=== PATIENT | male | born 1940 | race Caucasian/White ===

== ENCOUNTER 2019-11-11 12:57 | Outpatient (CLI) | payer MEDICARE, SELFPAY ==
--- NOTE | ~2019-11-11 | US_ITS ---
EXAMINATION: US abdomen complete EXAM DATE: 11/11/2019 13:46 INDICATION: Abdominal pain, symptoms one week. TECHNIQUE: Multiple grayscale and Doppler images of the complete abdomen were obtained (by a technolo gist who performed the scan) and subsequently reviewed. There is no prior study for comparison. FINDINGS: The abdominal aorta is normal in caliber. Visualized portion IVC is patent. The pancreatic head a nd body are normal in appearance. The pancreatic tail is not visualized. The liver has normal echogenicity and contour. There are no focal liver lesions identified. There is no evidence of intrahepatic biliary duct dilation. Portal venous flow was seen in the hepatopedal , normal direction and has normal Doppler waveform. Common bile duct measures 5 mm, which is normal. The gallbladder fossa is unremarkable. Right kidney: There is normal contour and echogenicity. It measures 11.6 x 7.4 x 5.2 centimeters. There are no focal renal lesions identified. There is no hydronephrosis. Left kidney: There is normal contour and echogenicity. It measures 11.2 x 5.8 x 5.3 centimeters. Th ere is a 2 cm cyst. There is no hydronephrosis. The spleen measures 13.2 centimeters and is morphologically normal. IMPRESSION: 1. Unremarkable complete abdominal ultrasound exam. Reviewed, dictated and finalized at location A. E [employer] DIRECTOR
== END 2019-11-11 12:58 | disposition home or self-care (01) ==
PROVIDERS: PCP Internal Medicine; Visit Provider Nurse Practitioner
DX: R10.9 Unspecified abdominal pain (principal)
CPT/HCPCS: 76700

== ENCOUNTER 2020-04-15 10:43 | Outpatient (CLI) | payer MEDICARE, SELFPAY ==
[2020-04-15 11:22] LABS: Alanine Aminotransferase 20 U/L (4-50); Albumin Level 4.4 g/dL (3.5-5.1); Alkaline Phosphatase 75 U/L (38-126); Anion Gap 13.5 mmol/L (7-16); Aspartate Amino Transferase 29 U/L (17-59); Bilirubin,Total 0.6 mg/dL (0.2-1.3); Blood Urea Nitrogen 20 mg/dL (9-20); Calcium 8.9 mg/dL (8.4-10.2); Carbon Dioxide 25 mmol/L (22-30); Chloride 105 mmol/L (98-107); Cholesterol 121 mg/dL (0-200); Estimated Glomerular Filt Rate > 60; Glucose 78 mg/dL (75-110); HDL Direct 36 mg/dL; Potassium 4.5 mmol/L (3.4-5.0); Sodium 139 mmol/L (137-145); Triglycerides 278 mg/dL (<150)
[2020-04-15 11:33] LABS: LDL Cholesterol Direct 57 mg/dL
== END 2020-04-15 10:44 | disposition home or self-care (01) ==
LOC: ANHLAB 10:46
PROVIDERS: PCP Internal Medicine; Visit Provider Internal Medicine
DX: E78.5 Hyperlipidemia, unspecified (principal); I10 Essential (primary) hypertension; Z51.81 Encounter for therapeutic drug level monitoring
CPT/HCPCS: 36415; 80053; 80061

== ENCOUNTER 2020-05-01 08:09 | Inpatient (IN) | payer MEDICARE, SELFPAY ==
[2020-05-01] VITALS (16 sets, daily range): BP systolic 78–121; BP diastolic 42–78; PULSE 90–126; RESP 12–22; TEMP 36.2–37.3; O2SAT 96–100; BMI 27.1
--- NOTE | ~2020-05-01 | US_ITS ---
EXAMINATION: US carotid duplex BI EXAM DATE: 05/02/2020 17:24 INDICATION: Carotid bruit. TECHNIQUE: Grayscale, color and pulsed Doppler images of the cervical carotid arteries were obtained . The degree of vessel stenosis is placed in one of the following categories: normal, <50% stenosis, 50-69% stenosis, >=70% stenosis but less than near-occlusion, near-occlusion, or occlusion. Note that percent stenosis relative to normal distal artery lumen diameter is indirectly measured from velocit y measurements as described by Mervin, et al. Radiology 2003; 229:340-346. There is no prior study fo r comparison. FINDINGS: RIGHT SIDE: Right common carotid artery peak systolic velocity (PSV in cm/s): 71 Right bulb/internal carotid artery peak systolic velocity (PSV in cm/s): 214 Right internal carotid artery end diastolic velocity (EDV in cm/s): 64 Right ICA/CCA peak systolic ratio: 3.0 Right external carotid artery peak systolic velocity (PSV in cm/s): 87 Right vertebral artery antegrade flow: yes Moderate to large amount of right carotid bulb plaque with elevated velocity corresponding to 50-69% stenosis. LEFT SIDE: Left common carotid artery peak systolic velocity (PSV in cm/s): 112 Left bulb/internal carotid artery peak systolic velocity (PSV in cm/s): 274 Left internal carotid artery end diastolic velocity (EDV in cm/s): 91 Left ICA/CCA peak systolic ratio: 78 Left external carotid artery peak systolic velocity (PSV in cm/s): 72 Left vertebral artery antegrade flow: yes Moderate to large amount of left carotid bulb plaque with elevated velocity corresponding to greater than 70% but less than near occlusion. IMPRESSION: 1. 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 2. >=70% stenosis but less than near-occlusion left internal carotid artery. Reviewed, dictated and finalized at location A.
--- NOTE | 2020-05-01 08:16 | ECG_ITS ---
Measurements Intervals [place] Rate: 106 P: 37 FL: 133 QRS: 5 QRSD: 73 T: 90 QT: 325 QTc: 433 Interpretive Statements SINUS TACHYCARDIA BORDERLINE ST-T WAVE ABNORMALITY- ANTEROLAT/HIGH LAT LEADS BASELINE ARTIFACT- I, II, III, AVR, AVL, AVF, V1 ABNORMAL ECG Electronically Signed On 05-01-2020 14:57:30 CDT by Murphy Guerrero D.O.
--- NOTE | 2020-05-01 08:41 | ED.GENADULT ---
HPI - General Adult General Chief complaint: GI Bleed Stated complaint: rectal bleeding Time Seen by Provider: 05/01/20 08:20 Source: patient History of Present Illness HPI narrative: Patient is a 80 y/o male complaining of dark and slightly bloody stool for last 2 days. There is alleviating or exacerbating factor. He states that he had some vomiting 3-4 days ago, but vomiting has stopped. He has no fever, abdominal pain or diarrhea. He feels weak, but denies passing out. He states that he attempted to take his BP with home BP machine earlier today but it would not give a reading. Related Data Home Medications Medication Instructions Recorded Confirmed aspirin 81 mg tablet,delayed 81 mg PO DAILY 10/14/19 05/01/20 release atorvastatin 40 mg tablet 40 mg PO DAILY 10/14/19 05/01/20 Allergies Allergy/AdvReac Type Severity Reaction Status Date / Time No Known Allergies Allergy Unverified 05/01/20 08:17 Review of Systems Constitutional: Constitutional: Denies chills, Denies fever(s), Denies headache(s) and Reports weakness Eyes: Eyes: Denies blurry vision ENT: Denies headache(s) and Denies neck pain Cardiovascular: Cardiovascular: Denies chest pain and Denies dyspnea Respiratory: Respiratory: Denies cough and Denies dyspnea Gastrointestinal: Gastrointestinal: Reports as per HPI, Denies abdominal pain, Reports melena, Reports hematochezia, Denies diarrhea, Reports nausea and Reports vomiting (resolved) Genitourinary: Genitourinary: Denies hematuria and Denies dysuria Musculoskeletal: Musculoskeletal: Denies back pain and Denies neck pain Neurologic: Denies headache(s) and Denies weakness [facility] Past Medical History Medical History Cholecystectomy planned Family History Family History Mother Diabetes mellitus Family history of diabetes mellitus in first degree relative Father Family history of anemia Sibling Patient's sister is in good health Patient's brother is in good health Social History Social History Smoking status: Former smoker Smoking end date: 09/23/77 Alcohol intake: never Substance use: never Gender identity (if verbalized by the patient): Male Spiritual care concerns: No Exam Const: General: no acute distress and well developed Orientation/consciousness: oriented to person, oriented to place, oriented to time and patient oriented x3 HENMT: Head: normocephalic Ears: external ears normal General nose exam: Normal external nose present Eyes: General: appearance normal, both eyes and all related structures Conjunctivae: conjunctivae normal Neck: Neck: normal visual inspection and full ROM Chest: Chest palpation & inspection: normal inspection of the chest and no tenderness Resp: Effort & Inspection: normal respiratory effort Auscultation: clear to auscultation bilaterally Cardio: Rate: tachycardic Rhythm: regular rhythm GI: GI Palp: No abdominal tenderness and Yes Soft to palpation Skin: General skin exam: normal color and turgor normal Neuro: General: oriented to person, oriented to place, oriented to time and patient oriented x3 Cognition (Neuro): normal cognition Extrem: General: normal to inspection, full ROM and no pedal edema Psych: Appearance: grossly normal Mental Status: mental status grossly normal Affect: normal affect Course Consultations Consultation #1: Discussed with Dr. Pendleton, who agrees to admit. Date: 05/01/20 Time: 11:19 Consultation #2: Discussed with Dr. Vidal, who agrees to consult. Date: 05/01/20 Time: 11:38 Vital Signs Vital signs: Vital Signs Temperature 36.2 C L 05/01/20 08:12 Pulse Rate 100 05/01/20 08:12 Respiratory Rate 21 H 05/01/20 08:12 Blood Pressure 103/50 L 05/01/20 08:12 Pulse Oximetry 100 05/01/20 08:12 Temperature 36.9 C 05/01/20 1
[2020-05-01] MEDS: SODIUM CHLORIDE 0.9% IV 1,000 ML 999 ML IV CONT ×2 (08:43→11:13)
[2020-05-01 08:50] LABS: Basophils Percent Auto 0.2 % (0.2-1.2); Eosinophils Percent Auto 0.2 % (0-4.4); Hematocrit 27.5 % (42.0-52.0); Immature Granulocyte Absolute 0.08 K/mm3 (0.00-0.031); Immature Granulocyte Percent A 0.6 % (0-0.5); Lymphocytes Absolute Auto 2.26 K/mm3 (0.9-3.2); Lymphocytes Percent Auto 17.5 % (18.3-44.2); Mean Corpuscular HGB Conc 32.7 g/dl (32-36); Mean Corpuscular Hemoglobin 30.4 pg (26-34); Mean Corpuscular Volume 92.9 fl (80-100); Mean Platelet Volume 11.5 fl (7.4-10.4); Monocytes Absolute Auto 0.6 K/mm3 (0.1-0.6); Monocytes Percent Auto 4.3 % (2.6-8.5); Neutrophils Percent Auto 77.2 % (45.5-73.1); Platelet Count Result 232 k/mm3 (150-375); Red Blood Count 2.96 M/mm3 (4.6-6.20); Red Cell Distribution Width 13.2 % (11.5-14.5); White Blood Count 12.9 K/mm3 (4.5-10.0)
[2020-05-01 08:56] LABS: Alanine Aminotransferase 14 U/L (4-50); Albumin Level 3.6 g/dL (3.5-5.1); Alkaline Phosphatase 49 U/L (38-126); Anion Gap 13 mmol/L (8-16); Aspartate Amino Transferase 20 U/L (17-59); Bilirubin,Total 0.4 mg/dL (0.2-1.3); Blood Urea Nitrogen 30 mg/dL (9-20); Calcium 7.9 mg/dL (8.4-10.2); Carbon Dioxide 18 mmol/L (22-30); Chloride 105 mmol/L (98-107); Estimated CRCL calculation 43 ml/min; Estimated Glomerular Filt Rate > 60; Glucose 179 mg/dL (75-110); Potassium 4.2 mmol/L (3.4-5.0); Sodium 136 mmol/L (137-145)
[2020-05-01 09:02] LABS: INR 1.2; Prothrombin Time 14.6 Seconds (11.1-14.7)
[2020-05-01 10:01] LABS: Hematocrit 22.6 % (42.0-52.0); Hemoglobin 7.3 g/dL (14.0-18.0)
[2020-05-01] MEDS: PANTOPRAZOLE SODIUM IV 40 MG VIAL IV PUSH ×2 (12:01→20:59)
--- NOTE | 2020-05-01 12:48 | ADMGEN ---
This patient, Osmani Ma Jr., was admitted to IMU Room 212-01. Patient/family oriented to hospital policies and general routines including ID bracelet, bed and alarms, visiting hours, pain management, procedures, bathroom and other care routines, personal items, smoking policy, room service/diet, and visiting hours. Valuables list has been completed. Information on how to activate the Rapid Response Team has been discussed. Patient/Family are encouraged to report perceived risks to care and to ask questions if they do not understand what they are told or what they should do.
[2020-05-01] MEDS: SODIUM CHLORIDE 0.9% IV 250 ML 30 ML IV CONT (13:30)
[2020-05-01] MEDS: TUBING, BLOOD PLUM PUMP TUBING 1 EACH XX (14:25)
[2020-05-01] MEDS: DEXTROSE 5%/0.45% SOD CHL 1,000 ML 100 ML IV CONT (15:41)
--- NOTE | 2020-05-01 15:56 | PM.IMHP ---
H&P: HPI History of Present Illness Date/Time: 05/01/20 15:56 Chief complaint: acute blood loss anemia Narrative: Osmani Ma Jr. is a 80yo male with hx of CAD on ASA who present to the ER with complaint of mostly dark and slightly bloody stool for last 2 days. Patient has been having frequent small bowel movements. Stool has been mostly dark black in color but there was 1 episode where stool was reddish. No abdominal pain. No fever or chills. No chest pain. No odynophagia or dysphagia. No cough or SOB. No dysuria or hematuria. He denies GERD symptoms but did have bloating about 6 months ago treated with Gas-X with benefit. He is having recurrent bloating that began about a month ago. He does take Tums daily for the bloating. He did have episode of emesis x5 a day or so prior to the having black stools. No blood in the emesis. No sick contacts. Could have been related to spoiled foods. Nause and vomiting resolved. He takes Aleve 2-3x/month for pain. He denies any burning in the chest or acid taste the mouth. No weight loss. This morning patient had a black stool. When he stood, he felt lightheaded and weak. Symptoms past but because of the symptoms he presented to the emergency room for evaluation. In the emergency room, patient was hemodynamically stable. Hemoglobin was 9.0. While in the emergency room patient's systolic blood pressure dropped to 78. His repeat hemoglobin was 7.3. He had received IV fluids. He was started on Protonix. Transfusion ordered. GI consulted. He was admitted to the IMU for further management. He does have a murmur but states he had an Echo 1-2 months ago. Review of Systems Review of Systems: All systems reviewed & are unremarkable except as noted in HPI and below [facility] Past Medical History Medical History CAD (coronary artery disease) Hx of prox and Mid LAD stent placement January 2018 Hearing loss Sensorineural Hyperlipidemia, unspecified Surgical History Surgical History Hx of cataract surgery Hx of cholecystectomy Family History Family History Mother Diabetes mellitus Family history of diabetes mellitus in first degree relative Father Family history of anemia Sibling Patient's sister is in good health Patient's brother is in good health Social History Social History Social History: Lives with and does have a dog. Quit tobacco at 40yo after smoking 2.5ppd for 30 yrs (started at age 10yo). No alcohol or drug use. Full code. He nominates his to be the individual who would make medical decisions for him if he is unable. Smoking status: Former smoker Smoking end date: 09/23/77 Alcohol intake: never Substance use: never Gender identity (if verbalized by the patient): Male Spiritual care concerns: No Meds Home Medications and Allergies Home Medications Medication Instructions Recorded Confirmed Type aspirin 81 mg tablet,delayed 81 mg PO DAILY 10/14/19 05/01/20 History release atorvastatin 40 mg tablet 40 mg PO DAILY 10/14/19 05/01/20 History Allergies Allergy/AdvReac Type Severity Reaction Status Date / Time No Known Allergies Allergy Unverified 05/01/20 08:17 Vital Signs Vital Signs - 24 hr 05/01/20 08:12 05/01/20 08:21 05/01/20 08:43 Temperature 97.1 F L Pulse Rate 100 108 H 126 H Respiratory Rate 21 H 16 Blood Pressure 103/50 L 121/68 78/46 L Pulse Oximetry 100 97 05/01/20 09:56 05/01/20 11:13 05/01/20 12:23 Temperature Pulse Rate 97 98 99 Respiratory Rate 17 18 20 Blood Pressure 101/51 L 112/60 121/46 L Pulse Oximetry 100 99 96 05/01/20 13:03 05/01/20 13:27 05/01/20 13:43 Temperature 98.4 F 98.4 F 98 F Pulse Rate 103 H 103 H 101 H Respiratory Rate 14 14 12 Blood Pressure 9
[2020-05-01 15:59] LABS: IFOB Positive Control Positive; Immunochemical Fecal Occult Bl Positive (N)
[2020-05-01 19:07] LABS: Hematocrit 21.9 % (42.0-52.0); Hemoglobin 7.3 g/dL (14.0-18.0)
[2020-05-02] VITALS (32 sets, daily range): BP systolic 84–128; BP diastolic 36–54; PULSE 62–101; RESP 16–24; TEMP 35.7–36.6; O2SAT 89–100
[2020-05-02 00:47] LABS: Hemoglobin 6.2 g/dL (14.0-18.0)
[2020-05-02 00:48] LABS: Hematocrit 18.7 % (42.0-52.0)
[2020-05-02] MEDS: DEXTROSE 5%/0.45% SOD CHL 1,000 ML 100 ML IV CONT (01:05)
[2020-05-02] MEDS: SODIUM CHLORIDE 0.9% IV 100 ML 20 ML (05:34)
[2020-05-02] MEDS: PANTOPRAZOLE SODIUM IV 40 MG VIAL IV PUSH ×2 (08:24→20:51)
[2020-05-02] MEDS: SODIUM CHLORIDE 0.9% IV 250 ML 30 ML IV CONT (08:26)
--- NOTE | 2020-05-02 09:15 | WPDGICN ---
Assessment and Plan Assessment and plan (1) GI bleed: Qualifiers: GI bleed type/associated pathology: unspecified gastrointestinal hemorrhage type Qualified Code(s): K92.2 - Gastrointestinal hemorrhage, unspecified Code(s): K92.2 - Gastrointestinal hemorrhage, unspecified Status: Acute Assessment and Plan: Patient with GI bleeding. Black melenic stools coffee-ground emesis all suggest upper GI bleeding. Plan is to start proton pump inhibitor. Transfuse to stable hemoglobin an EGD will be performed today. (2) Acute blood loss anemia: Code(s): D62 - Acute posthemorrhagic anemia Status: Acute Assessment and Plan: Transfuse to a stable hemoglobin. Continue monitor hemoglobin closely while hospitalized. (3) CAD (coronary artery disease): Code(s): I25.10 - Atherosclerotic heart disease of [place] coronary artery without angina pectoris Status: Acute GI Consult Note Consult date/time: 05/02/20 09:15 HPI: Osmani Ma Jr. is a 80 year old male Seen in evaluation at the request of the hospitalist service. Patient states he was in usual state of health however since Saturday over last 2-3 days is had bloody and black stools. He states he initially vomited coffee-ground dark material on Saturday period and subsequently had blood in his stools that is mostly dark but some red tinge. He has had rather vague abdominal discomfort. He denies any prior history of ulcer disease. He became somewhat lightheaded yesterday prompting him to present to the emergency room for evaluation and admission. He has received transfusion since that time. Review of Systems Review of Systems: All systems reviewed & are unremarkable except as noted in HPI and below [facility] Past Medical History Medical History CAD (coronary artery disease) Hx of prox and Mid LAD stent placement January 2018 Hearing loss Sensorineural Hyperlipidemia, unspecified Surgical History Surgical History Hx of cataract surgery Hx of cholecystectomy Family History Family History Mother Diabetes mellitus Family history of diabetes mellitus in first degree relative Father Family history of anemia Sibling Patient's sister is in good health Patient's brother is in good health Social History Social History Social History: Lives with and does have a dog. Quit tobacco at 40yo after smoking 2.5ppd for 30 yrs (started at age 10yo). No alcohol or drug use. Full code. He nominates his to be the individual who would make medical decisions for him if he is unable. Smoking status: Former smoker Smoking end date: 09/23/77 Alcohol intake: never Substance use: never Gender identity (if verbalized by the patient): Male Spiritual care concerns: No Meds Home Medications and Allergies Home Medications Medication Instructions Recorded Confirmed Type aspirin 81 mg tablet,delayed 81 mg PO DAILY 10/14/19 05/01/20 History release atorvastatin 40 mg tablet 40 mg PO DAILY 10/14/19 05/01/20 History Allergies Allergy/AdvReac Type Severity Reaction Status Date / Time No Known Allergies Allergy Unverified 05/01/20 08:17 Vital Signs Vital Signs - 24 hr 05/01/20 09:56 05/01/20 11:13 05/01/20 12:23 Temperature Pulse Rate 97 98 99 Respiratory Rate 17 18 20 Blood Pressure 101/51 L 112/60 121/46 L Pulse Oximetry 100 99 96 05/01/20 13:03 05/01/20 13:27 05/01/20 13:43 Temperature 98.4 F 98.4 F 98 F Pulse Rate 103 H 103 H 101 H Respiratory Rate 14 14 12 Blood Pressure 93/47 L 93/47 L 112/44 L Pulse Oximetry 100 100 100 05/01/20 14:00 05/01/20 14:43 05/01/20 16:00 Temperature 98 F 98.2 F Pulse Rate 98 99 90 Respiratory Rate 12 18 Blood Pressure 111/49 L
[2020-05-02 11:04] LABS: Hematocrit 23.2 % (42.0-52.0); Hemoglobin 7.8 g/dL (14.0-18.0); Mean Corpuscular HGB Conc 33.6 g/dl (32-36); Mean Corpuscular Hemoglobin 28.9 pg (26-34); Mean Corpuscular Volume 85.9 fl (80-100); Mean Platelet Volume 10.8 fl (7.4-10.4); Platelet Count Result 149 k/mm3 (150-375); White Blood Count 8.4 K/mm3 (4.5-10.0)
[2020-05-02 11:18] LABS: Anion Gap 3 mmol/L (8-16); Blood Urea Nitrogen 22 mg/dL (9-20); Calcium 6.8 mg/dL (8.4-10.2); Carbon Dioxide 23 mmol/L (22-30); Chloride 108 mmol/L (98-107); Estimated CRCL calculation 52 ml/min; Estimated Glomerular Filt Rate > 60; Glucose 100 mg/dL (75-110); Potassium 3.5 mmol/L (3.4-5.0); Sodium 134 mmol/L (137-145)
[2020-05-02] MEDS: LACTATED RINGERS 1,000 ML 150 ML IV CONT (12:34)
--- NOTE | 2020-05-02 12:58 | WPDANESEPPF ---
Anes - Initial Pre Proc Eval Procedure: Operation Date: 05/02/20 13:00 Proposed Procedures p Esophagogastroduodenoscopy - Willard Vidal MD Date/Time: 05/02/20 12:58 Surgeon: Roney Pendleton MD Pre Op Diagnosis: acute blood loss anemia Patient Data Age: 80 Gender: M Height: 5 ft 7 in Weight: 78.7 kg Last Vital Signs Temp 97.9 F 05/02/20 12:36 Pulse 81 05/02/20 12:36 Resp 18 05/02/20 12:36 BP 114/53 L 05/02/20 12:36 Pulse Ox 96 05/02/20 12:36 Allergies Allergy/AdvReac Type Severity Reaction Status Date / Time No Known Allergies Allergy Unverified 05/01/20 08:17 Home Medications Medication Instructions Recorded Confirmed Type aspirin 81 mg tablet,delayed 81 mg PO DAILY 10/14/19 05/01/20 History release atorvastatin 40 mg tablet 40 mg PO DAILY 10/14/19 05/01/20 History Laboratory Tests 05/01/20 05/01/20 05/01/20 08:31 15:24 18:31 WBC RBC Hgb 7.3 g/dL L g/dL (14.0-18.0) Hct 21.9 % L % (42.0-52.0) MCV MCH MCHC RDW Plt Count MPV Sodium Potassium Chloride Carbon Dioxide Anion Gap BUN Creatinine Estim Creat Clear Calc Estimated GFR Glucose Calcium Stl Occult Blood (IFOB) Positive H (N) Blood Type O Positive Antibody Screen Negative Crossmatch See Detail 05/02/20 05/02/20 05/02/20 00:35 10:10 10:10 WBC 8.4 K/mm3 K/mm3 (4.5-10.0) RBC 2.70 M/mm3 L M/mm3 (4.6-6.20) Hgb 6.2 g/dL L* g/dL 7.8 g/dL L g/dL (14.0-18.0) (14.0-18.0) Hct 18.7 % L* % 23.2 % L % (42.0-52.0) (42.0-52.0) MCV 85.9 fl D fl (80-100) MCH 28.9 pg pg (26-34) MCHC 33.6 g/dl g/dl (32-36) RDW 17.0 % H % (11.5-14.5) Plt Count 149 k/mm3 L k/mm3 (150-375) MPV 10.8 fl H fl (7.4-10.4) Sodium 134 mmol/L L mmol/L (137-145) Potassium 3.5 mmol/L mmol/L (3.4-5.0) Chloride 108 mmol/L H mmol/L (98-107) Carbon Dioxide 23 mmol/L mmol/L (22-30) Anion Gap 3 mmol/L L mmol/L (8-16) BUN 22 mg/dL H mg/dL (9-20) Creatinine 0.90 mg/dL mg/dL (0.7-1.3) Estim Creat Clear Calc 52 ml/min ml/min Estimated GFR > 60 (59 - ) Glucose 100 mg/dL mg/dL (75-110) Calcium 6.8 mg/dL L mg/dL (8.4-10.2) Stl Occult Blood (IFOB) Blood Type Antibody Screen Crossmatch Patient hx anesthesia problems: none Family hx anesthesia problems: none [facility] Past Medical History Medical History CAD (coronary artery disease) Hx of prox and Mid LAD stent placement January 2018 Hearing loss Sensorineural Hyperlipidemia, unspecified Surgical History Surgical History Hx of cataract surgery Hx of cholecystectomy Family History Family History Mother Diabetes mellitus Family history of diabetes mellitus in first degree relative Father Family history of anemia Sibling Patient's sister is in good health Patient's brother is in good health Social History Social History Social History: Lives with and does have a dog. Quit tobacco at 40yo after smoking 2.5ppd for 30 yrs (started at age 10yo). No alcohol or drug use. Full code. He nominates his to be the individual who would make medical decisions for him if he is unable. Smoking status: Former smoker Smoking end date: 09/23/77 Alcohol intake: never Substance use: never Ge
[2020-05-02] MEDS: BENZOCAINE (*SP) 60 ML SPRAY CAN (HURRICAINE) 1 SPRAY MUCOUS MEM (14:01)
--- NOTE | 2020-05-02 14:29 | PM.IMPN ---
Progress Note: A&P Assessment and Plan (1) Hypotension: Code(s): I95.9 - Hypotension, unspecified Status: Acute Assessment and Plan: Patient had transient hypotension related to the acute blood loss anemia. Blood pressure became more stable. BP currently at 90/40 so will continue IV fluids for now. Continue to monitor closely. Transfusion as necessary. Keep in IMU for now. (2) Acute blood loss anemia: Code(s): D62 - Acute posthemorrhagic anemia Status: Acute Assessment and Plan: Hemoglobin was 9 on admission and dropped to 7.3. He was transfusion of 1 unit packed red blood cells. Hgb this morning at 6.2 so repeat transfusion ordered. Repeat Hgb 7.8. Continue serial HH (3) GI bleed: Qualifiers: GI bleed type/associated pathology: unspecified gastrointestinal hemorrhage type Qualified Code(s): K92.2 - Gastrointestinal hemorrhage, unspecified Code(s): K92.2 - Gastrointestinal hemorrhage, unspecified Status: Acute Assessment and Plan: Patient likely with an upper GI bleed to explain the acute blood loss and hypotension. Stool is guaiac positive. He does take NSAIDs in the form of ASA and occasional Aleve. EGD showing reflux esophagitis that bleeds on contact. GI following and appreciate their input. BP soft still possibly from anaesthesia. Will contineu IV fluids. (4) CAD (coronary artery disease): Code(s): I25.10 - Atherosclerotic heart disease of [place] coronary artery without angina pectoris Status: Acute Assessment and Plan: Patient had abnormal stress test and ultimately underwent catheterization in January of 2018. This showed left anterior descending artery stenosis requiring drug-eluting stent placement. Patient has been doing well since that time. No chest pain with exertion. Will continue Lipitor but hold aspirin. Carotid US showing 50-69% stenosis right and >=70% stenosis but less than near-occlusion left internal carotid artery. ASA on hold. Continue Lipitor. Will need confirmatory testing to assess severity which can be deferred to outpatient. (5) Hyperlipidemia, unspecified: Code(s): E78.5 - Hyperlipidemia, unspecified Status: Acute Assessment and Plan: LFTs within normal limits. Cholesterol panel last month showing LDL 57 and HDL 36. Continue atorvastatin. (6) Carotid bruit: Code(s): R09.89 - Other specified symptoms and signs involving the circulatory and respiratory systems Status: Acute Assessment and Plan: Left carotid bruit appreciated. Carotid ultrasound pending. (7) DVT prophylaxis: Code(s): Z29.9 - Encounter for prophylactic measures, unspecified Status: Acute Assessment and Plan: SCDs in light of GI bleed. Subjective Date/time seen: 05/02/20 14:29 Interval history: 80yo male here for GI bleed. Patient was having dark red stools overnight. He slept okay. He denies any chest pain or shortness of breath. He denies any abdominal pain. Exam Narrative: Exam Narrative: AF 90/40 83 24 100% ra Gen - NARD Chest - lungs are clear to auscultation bilaterally. No wheezes or crackles. CV - heart was regular rate and rhythm. S1-S2. Tele showing some sinus tachycardia at times Abd - abdomen was soft. Nontender. Nondistended. Positive bowel sounds. Ext - no pedal edema. Neuro - nonfocal Psych - normal mood and affect Skin - warm and dry. Objective Data Vital Signs Vital Signs: Vital Signs - 24 hr 05/01/20 14:43 05/01/20 16:00 05/01/20 17:46 Temperature 98 F 98.2 F Pulse Rate 99 90 110 H Respiratory Rate 12 18 Blood Pressure 111/49 L 107/47 L Pulse Oximetry 99 100 05/01/20 19:04 05/01/20 20:00 05/01/20 22:00 Temperature 99.2 F Pulse Rate 101 H 103 H 99 Respiratory Rate 18 22 H Blood Pressure 115/42 L Pulse Oximetry 98 100 05/02/20 00:00 05/02/20 02:00 05/02/20 03:37 Temper
[2020-05-02 15:29] LABS: Hematocrit 23.1 % (42.0-52.0); Hemoglobin 7.7 g/dL (14.0-18.0)
[2020-05-02] MEDS: LACTATED RINGERS 1,000 ML 70 ML IV CONT (16:56)
[2020-05-02 21:54] LABS: Hematocrit 19.1 % (42.0-52.0); Hemoglobin 6.3 g/dL (14.0-18.0)
[2020-05-03] VITALS (17 sets, daily range): BP systolic 87–123; BP diastolic 41–55; PULSE 78–98; RESP 18–20; TEMP 36–37.1; O2SAT 95–100
[2020-05-03] MEDS: SODIUM CHLORIDE 0.9% IV 250 ML 30 ML IV CONT (00:52)
--- NOTE | 2020-05-03 02:21 | PC.NURSE ---
05/03/20: 0221: DR PUGA IS AWARE OF PATIENTS LOW BLOOD PRESSURE AND THAT THE PATIENT IS STILL HAVING BLOODY STOOLS.
[2020-05-03 04:32] LABS: Hematocrit 26.1 % (42.0-52.0); Hemoglobin 8.8 g/dL (14.0-18.0); Mean Corpuscular HGB Conc 33.7 g/dl (32-36); Mean Corpuscular Hemoglobin 29.9 pg (26-34); Mean Corpuscular Volume 88.8 fl (80-100); Mean Platelet Volume 10.4 fl (7.4-10.4); Platelet Count Result 139 k/mm3 (150-375); Red Blood Count 2.94 M/mm3 (4.6-6.20); White Blood Count 7.8 K/mm3 (4.5-10.0)
[2020-05-03 04:50] LABS: Anion Gap 4 mmol/L (8-16); Blood Urea Nitrogen 20 mg/dL (9-20); Calcium 7.2 mg/dL (8.4-10.2); Carbon Dioxide 24 mmol/L (22-30); Chloride 108 mmol/L (98-107); Estimated CRCL calculation 47 ml/min; Estimated Glomerular Filt Rate > 60; Glucose 89 mg/dL (75-110); Potassium 3.9 mmol/L (3.4-5.0); Sodium 136 mmol/L (137-145)
--- NOTE | 2020-05-03 07:50 | WPDANESPN ---
Anes - Prog Note Post-Op Date/Time: 05/03/20 07:50 Cardiovascular status: normal Respiratory status: normal Airway patency: baseline Mental status: baseline Post-Op hydration status: normal Vital Signs: Last Vital Signs Temp 36.3 C L 05/03/20 03:55 Pulse 88 05/03/20 06:00 Resp 20 05/03/20 04:00 BP 115/47 L 05/03/20 03:55 Pulse Ox 95 05/03/20 04:00 I/O: Intake & Output 05/02/20 05/02/20 05/03/20 15:59 23:59 07:59 Intake Total 700 240 700 Balance 700 240 700 Laboratory Tests 05/03/20 04:18 05/03/20 04:18 05/01/20 05/02/20 05/02/20 08:31 10:10 10:10 WBC 8.4 RBC 2.70 L Hgb 7.8 L Hct 23.2 L MCV 85.9 D MCH 28.9 MCHC 33.6 RDW 17.0 H Plt Count 149 L MPV 10.8 H Sodium 134 L Potassium 3.5 Chloride 108 H Carbon Dioxide 23 Anion Gap 3 L BUN 22 H Creatinine 0.90 Estim Creat Clear Calc 52 Estimated GFR > 60 Glucose 100 Calcium 6.8 L Blood Type O Positive Antibody Screen Negative Crossmatch See Detail 05/02/20 05/02/20 05/03/20 15:19 21:30 04:18 WBC 7.8 RBC 2.94 L Hgb 7.7 L 6.3 L* 8.8 L Hct 23.1 L 19.1 L* 26.1 L MCV 88.8 MCH 29.9 MCHC 33.7 RDW 16.0 H Plt Count 139 L MPV 10.4 Sodium Potassium Chloride Carbon Dioxide Anion Gap BUN Creatinine Estim Creat Clear Calc Estimated GFR Glucose Calcium Blood Type Antibody Screen Crossmatch 05/03/20 04:18 WBC RBC Hgb Hct MCV MCH MCHC RDW Plt Count MPV Sodium 136 L Potassium 3.9 Chloride 108 H Carbon Dioxide 24 Anion Gap 4 L BUN 20 Creatinine 1.00 Estim Creat Clear Calc 47 Estimated GFR > 60 Glucose 89 Calcium 7.2 L Blood Type Antibody Screen Crossmatch Post-procedural complaints: none Patient Feedback: Patient satisfied with anesthetic care.
[2020-05-03] MEDS: ATORVASTATIN 40 MG TABLET PO (09:42)
[2020-05-03] MEDS: LACTATED RINGERS 1,000 ML 70 ML IV CONT (09:43)
[2020-05-03] MEDS: PANTOPRAZOLE SODIUM IV 40 MG VIAL IV PUSH ×2 (09:44→22:14)
--- NOTE | 2020-05-03 12:21 | WPDGIPROGNO ---
Progress Note: A&P Additional Plan Patient alert and comfortable today. Denies abdominal pain. He continued to pass some reddish stools yesterday. Received transfusion. Denies any ongoing abdominal pain. No additional bleeding noted this morning. Physical exam reveals patient be alert. lungs are clear. Heart without murmur. Abdomen bowel sounds present soft nontender with no organomegaly. Labs reveal hemoglobin 8.8 after transfusion yesterday. Impression 1. GI bleeding. Cannot exclude lower GI source contributing to blood loss. Plan to proceed with colonoscopy tomorrow after preparation today. 2. Erosive esophagitis. This was identified by endoscopy yesterday. Likely contributes to GI bleeding. Will maintain patient on proton pump inhibitor. Subjective Date/time seen: 05/03/20 12:21 Objective Data Vital Signs Vital Signs: Vital Signs - 24 hr 05/02/20 12:36 05/02/20 14:00 05/02/20 14:11 Temperature 97.9 F Pulse Rate 81 90 83 Respiratory Rate 18 24 H Blood Pressure 114/53 L 90/40 L Pulse Oximetry 96 100 05/02/20 14:21 05/02/20 14:31 05/02/20 14:44 Temperature Pulse Rate 83 87 90 Respiratory Rate 21 H 19 19 Blood Pressure 84/38 L 97/36 L 102/51 L Pulse Oximetry 100 100 100 05/02/20 16:00 05/02/20 16:47 05/02/20 17:57 Temperature 96.8 F L Pulse Rate 86 95 96 Respiratory Rate 18 Blood Pressure 117/51 L Pulse Oximetry 100 05/02/20 19:58 05/02/20 20:00 05/02/20 22:00 Temperature 97.9 F Pulse Rate 100 100 101 H Respiratory Rate 18 18 Blood Pressure 104/45 L Pulse Oximetry 99 99 05/02/20 22:55 05/02/20 23:10 05/02/20 23:12 Temperature 96.4 F L 96.6 F L 96.6 F L Pulse Rate 90 92 92 Respiratory Rate 20 16 16 Blood Pressure 105/40 L 99/47 L 99/47 L Pulse Oximetry 97 98 98 05/03/20 00:00 05/03/20 00:12 05/03/20 01:12 Temperature 98.0 F 97.5 F L Pulse Rate 78 78 87 Respiratory Rate 20 20 20 Blood Pressure 96/46 L 109/55 L Pulse Oximetry 97 97 97 05/03/20 01:39 05/03/20 01:45 05/03/20 02:00 Temperature 97.3 F L 96.9 F L 96.8 F L Pulse Rate 94 87 95 Respiratory Rate 20 20 20 Blood Pressure 109/55 L 88/48 L 87/44 L Pulse Oximetry 97 97 97 05/03/20 03:00 05/03/20 03:55 05/03/20 04:00 Temperature 97.9 F 97.4 F L Pulse Rate 91 86 86 Respiratory Rate 20 20 20 Blood Pressure 123/50 L 115/47 L Pulse Oximetry 97 95 95 05/03/20 06:00 05/03/20 08:37 Temperature 97.8 F Pulse Rate 88 94 Respiratory Rate 20 Blood Pressure 117/50 L Pulse Oximetry 100 Intake/Output Intake/Output: Intake & Output 04/30/20 05/01/20 05/02/20 05/03/20 23:59 23:59 23:59 23:59 Intake Total 8425 2530 1940 Balance 2685 2530 1940 Meds/Results Medications: Active Medications Generic Name Dose Route Start Last Admin Trade Name Freq PRN Reason Stop Dose Admin Atorvastatin Calcium 40 mg 05/02/20 09:00 05/03/20 09:42 Lipitor PO 40 mg DAILY DUSTY Administration Lactated Ringer's 1,000 mls @ 70 mls/hr 05/02/20 16:30 05/03/20 09:43 Lr - Lactated Ringers Iv IV CONT 70 mls/hr .[id number] DUSTY Administration Lidocaine HCl 0.3 ml 05/02/20 09:53 Xylocaine 2% Local Inj INTRADERM ONCE PRN to numb area Pantoprazole Sodium 40 mg 05/01/20 21:00 05/03/20 09:44 Protonix Iv IV PUSH 40 mg Q12HR DUSTY Administration Radiology Results: ITS Impressions Carotid Doppler Study 05/02/20 18:17 IMPRESSION: 1. 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 2. >=70% stenosis but less than near-occlusion left internal carotid artery. Labs Labs: Laboratory Results - last 24 hr 05/01/20 05/02/20 05/02/20 08:31 15:19 21:30 WBC RBC Hgb 7.7 L 6.3 L* Hct 23.1 L 19.1 L* MCV MCH MCHC RDW Plt Count MPV Sodium Potassium Chloride Carbon Dioxide Anion Gap BUN Creatinine Estim Creat Clear Calc Estimated GFR Glucose Calcium Blood Type O
--- NOTE | 2020-05-03 12:33 | PC.NURSE ---
This patient, Osmani Ma Jr., was transferred to [[id number]] on 05/03/20 at 1233. Personal belongings sent with patient. Belongings list checked and signed with receiving [ ]. Report given to [JAMES WHARTON]. Appropriate documentation sent with patient.
[2020-05-03] MEDS: PEG (High)/E-LYTE SOLN 4,000 ML BTL 4000 ML PO (14:03)
--- NOTE | 2020-05-03 15:59 | PM.IMPN ---
Progress Note: A&P Assessment and Plan (1) Hypotension: Code(s): I95.9 - Hypotension, unspecified Status: Acute Assessment and Plan: Patient had transient hypotension related to the acute blood loss anemia. Blood pressure became more stable. Continue to monitor closely. Transfusion as necessary (2) Acute blood loss anemia: Code(s): D62 - Acute posthemorrhagic anemia Status: Acute Assessment and Plan: Hemoglobin was 9 on admission and dropped to 7.3. He was transfusion of 1 unit packed red blood cells. Hgb 8/10 at 6.2 so repeat transfusion ordered. Repeat Hgb 7.8. and 8.8 this am (3) GI bleed: Qualifiers: GI bleed type/associated pathology: unspecified gastrointestinal hemorrhage type Qualified Code(s): K92.2 - Gastrointestinal hemorrhage, unspecified Code(s): K92.2 - Gastrointestinal hemorrhage, unspecified Status: Acute Assessment and Plan: Patient likely with an upper GI bleed to explain the acute blood loss and hypotension. Stool is guaiac positive. He does take NSAIDs in the form of ASA and occasional Aleve. EGD showing reflux esophagitis that bleeds on contact.. . Will contineu IV fluids. colon 05/04 (4) CAD (coronary artery disease): Code(s): I25.10 - Atherosclerotic heart disease of redding coronary artery without angina pectoris Status: Acute Assessment and Plan: Patient had abnormal stress test and ultimately underwent catheterization in January of 2018. This showed left anterior descending artery stenosis requiring drug-eluting stent placement. Patient has been doing well since that time. No chest pain with exertion. Will continue Lipitor but hold aspirin. Carotid US showing 50-69% stenosis right and >=70% stenosis but less than near-occlusion left internal carotid artery. ASA on hold. Continue Lipitor. CTA of neck (5) Hyperlipidemia, unspecified: Code(s): E78.5 - Hyperlipidemia, unspecified Status: Acute Assessment and Plan: LFTs within normal limits. Cholesterol panel last month showing LDL 57 and HDL 36. Continue atorvastatin. (6) Carotid bruit: Code(s): R09.89 - Other specified symptoms and signs involving the circulatory and respiratory systems Status: Acute Assessment and Plan: Left carotid bruit appreciated. Carotid ultrasound as above and CTA ordered (7) DVT prophylaxis: Code(s): Z29.9 - Encounter for prophylactic measures, unspecified Status: Acute Assessment and Plan: SCDs in light of GI bleed. Subjective Date/time seen: 05/03/20 15:59 Interval history: Date of visit 05/03. 80yo male here for GI bleed. Patient was having dark red stools overnight. He slept okay. He denies any chest pain or shortness of breath. He denies any abdominal pain. Exam Narrative: Exam Narrative: AF 118/80 80 24 100% ra Gen - NARD Chest - lungs are clear to auscultation bilaterally. No wheezes or crackles. CV - heart was regular rate and rhythm. S1-S2. Abd - abdomen was soft. Nontender. Nondistended. Positive bowel sounds. Ext - no pedal edema. Neuro - nonfocal Psych - normal mood and affect Skin - warm and dry. Objective Data Vital Signs Vital Signs: Vital Signs - 24 hr 05/02/20 16:00 05/02/20 16:47 05/02/20 17:57 Temperature 36.0 C L Pulse Rate 86 95 96 Respiratory Rate 18 Blood Pressure 117/51 L Pulse Oximetry 100 05/02/20 19:58 05/02/20 20:00 05/02/20 22:00 Temperature 36.6 C Pulse Rate 100 100 101 H Respiratory Rate 18 18 Blood Pressure 104/45 L Pulse Oximetry 99 99 05/02/20 22:55 05/02/20 23:10 05/02/20 23:12 Temperature 35.8 C L 35.9 C L 35.9 C L Pulse Rate 90 92 92 Respiratory Rate 20 16 16 Blood Pressure 105/40 L 99/47 L 99/47 L Pulse Oximetry 97 98 98 05/03/20 00:00 05/03/20 00:12 05/03/20 01:12 Temperature 36.7 C 36.4 C L Pulse Rate 78 78 87 Respiratory
[2020-05-04] MEDS: LACTATED RINGERS 1,000 ML 70 ML IV CONT (00:15)
[2020-05-04 05:34] LABS: Basophils Percent Auto 0.5 % (0.2-1.2); Eosinophils Absolute Auto 0.2 K/mm3 (0-0.3); Eosinophils Percent Auto 2.3 % (0-4.4); Hematocrit 22.1 % (42.0-52.0); Hemoglobin 7.5 g/dL (14.0-18.0); Immature Granulocyte Absolute 0.09 K/mm3 (0.00-0.031); Immature Granulocyte Percent A 1.4 % (0-0.5); Lymphocytes Absolute Auto 1.38 K/mm3 (0.9-3.2); Lymphocytes Percent Auto 20.8 % (18.3-44.2); Mean Corpuscular HGB Conc 33.9 g/dl (32-36); Mean Corpuscular Volume 88.4 fl (80-100); Mean Platelet Volume 10.2 fl (7.4-10.4); Monocytes Absolute Auto 0.4 K/mm3 (0.1-0.6); Monocytes Percent Auto 5.9 % (2.6-8.5); Neutrophils Absolute Auto 4.6 K/mm3 (1.3-6.7); Neutrophils Percent Auto 69.1 % (45.5-73.1); Platelet Count Result 142 k/mm3 (150-375); White Blood Count 6.6 K/mm3 (4.5-10.0)
[2020-05-04 05:46] LABS: Anion Gap 4 mmol/L (8-16); Blood Urea Nitrogen 15 mg/dL (9-20); Calcium 7.5 mg/dL (8.4-10.2); Carbon Dioxide 25 mmol/L (22-30); Chloride 107 mmol/L (98-107); Estimated CRCL calculation 47 ml/min; Estimated Glomerular Filt Rate > 60; Glucose 89 mg/dL (75-110); Potassium 3.5 mmol/L (3.4-5.0); Sodium 136 mmol/L (137-145)
[2020-05-04 05:48] VITALS: BP 96/45; PULSE 83; RESP 18; TEMP 37.3; O2SAT 96
[2020-05-04] MEDS: PANTOPRAZOLE SODIUM IV 40 MG VIAL IV PUSH (08:04)
[2020-05-04] MEDS: LACTATED RINGERS 1,000 ML 150 ML IV CONT (10:38)
[2020-05-04 10:41] VITALS: BP 107/49; PULSE 77; RESP 18; TEMP 36.8; O2SAT 99
--- NOTE | 2020-05-04 11:07 | WPDANESEPPF ---
Anes - Initial Pre Proc Eval Procedure: Operation Date: 05/02/20 13:00 Proposed Procedures p Esophagogastroduodenoscopy - Willard Vidal MD Operation Date: 05/04/20 11:30 Proposed Procedures p Colonoscopy - Willard Vidal MD Date/Time: 05/04/20 11:07 Surgeon: Roney Pendleton MD Pre Op Diagnosis: acute blood loss anemia Patient Data Age: 80 Gender: M Height: 5 ft 7 in Weight: 77.2 kg Last Vital Signs Temp 98.2 F 05/04/20 10:41 Pulse 77 05/04/20 10:41 Resp 18 05/04/20 10:41 BP 107/49 L 05/04/20 10:41 Pulse Ox 99 05/04/20 10:41 Allergies Allergy/AdvReac Type Severity Reaction Status Date / Time No Known Allergies Allergy Verified 05/04/20 10:26 Home Medications Medication Instructions Recorded Confirmed Type aspirin 81 mg tablet,delayed 81 mg PO DAILY 10/14/19 05/01/20 History release atorvastatin 40 mg tablet 40 mg PO DAILY 10/14/19 05/01/20 History Laboratory Tests 05/04/20 05/04/20 05:25 05:25 WBC 6.6 K/mm3 K/mm3 (4.5-10.0) RBC 2.50 M/mm3 L M/mm3 (4.6-6.20) Hgb 7.5 g/dL L g/dL (14.0-18.0) Hct 22.1 % L % (42.0-52.0) MCV 88.4 fl fl (80-100) MCH 30.0 pg pg (26-34) MCHC 33.9 g/dl g/dl (32-36) RDW 16.0 % H % (11.5-14.5) Plt Count 142 k/mm3 L k/mm3 (150-375) MPV 10.2 fl fl (7.4-10.4) Immature Gran % (Auto) 1.4 % H % (0-0.5) Neut % (Auto) 69.1 % % (45.5-73.1) Lymph % (Auto) 20.8 % % (18.3-44.2) Posey % (Auto) 5.9 % % (2.6-8.5) Eos % (Auto) 2.3 % % (0-4.4) Baso % (Auto) 0.5 % % (0.2-1.2) Lymph # (Auto) 1.38 K/mm3 K/mm3 (0.9-3.2) Posey # (Auto) 0.4 K/mm3 K/mm3 (0.1-0.6) Eos # (Auto) 0.2 K/mm3 K/mm3 (0-0.3) Baso # (Auto) 0.0 K/mm3 K/mm3 (0.0-0.1) Abs Immat Gran (auto) 0.09 K/mm3 H K/mm3 (0.00-0.031) Absolute Neuts (auto) 4.6 K/mm3 K/mm3 (1.3-6.7) Absolute Nucleated RBC 0.0 K/mm3 K/mm3 (0.0-0.012) Nucleated RBC % 0.0 % % (0.0-0.2) Sodium 136 mmol/L L mmol/L (137-145) Potassium 3.5 mmol/L mmol/L (3.4-5.0) Chloride 107 mmol/L mmol/L (98-107) Carbon Dioxide 25 mmol/L mmol/L (22-30) Anion Gap 4 mmol/L L mmol/L (8-16) BUN 15 mg/dL D mg/dL (9-20) Creatinine 1.00 mg/dL mg/dL (0.7-1.3) Estim Creat Clear Calc 47 ml/min ml/min Estimated GFR > 60 (59 - ) Glucose 89 mg/dL mg/dL (75-110) Calcium 7.5 mg/dL L mg/dL (8.4-10.2) Patient hx anesthesia problems: none Family hx anesthesia problems: none [facility] Past Medical History Medical History CAD (coronary artery disease) Hx of prox and Mid LAD stent placement January 2018 Hearing loss Sensorineural Hyperlipidemia, unspecified Surgical History Surgical History Hx of cataract surgery Hx of cholecystectomy Family History Family History Mother Diabetes mellitus Family history of diabetes mellitus in first degree relative Father Family history of anemia Sibling Patient's sister is in good health Patient's brother is in good health Social History Social History Social History: Lives with and does have a dog. Quit tobacco at 40yo after smoking 2.5ppd for 30 yrs (started at age 10yo). No alcohol or drug use. Full code. He nominates his to be the individual who would make medical decisions for him if he is unable. Smoking status: Former smoker Smoking end date: 09/23/77 Alcohol intake: never Substance use: never Gender identity (if verbalized by the patient): Male Spiritual care concerns: No Anes - Eval Final PreProcedure Day of Procedure 05/04/20 11:07 Patient weight: n
[2020-05-04 11:46] VITALS: BP 98/37; PULSE 89; RESP 24; O2SAT 91
[2020-05-04 11:56] VITALS: BP 97/34; PULSE 92; RESP 23; O2SAT 96
[2020-05-04 12:06] VITALS: BP 91/44; PULSE 88; RESP 25; O2SAT 99
--- NOTE | 2020-05-04 12:24 | PC.NURSE ---
Returned from GI lab per vincent. Report received from [ ].
[2020-05-04] MEDS: ATORVASTATIN 40 MG TABLET PO (12:29)
--- NOTE | 2020-05-04 18:38 | PM.DS ---
DS: Admitting Diagnosis Admitting Diagnosis Admitting Diagnosis: Gastrointestinal hemorrhage, unspecified DS: Discharge Diagnosis Discharge Diagnosis (1) Hypotension: Code(s): I95.9 - Hypotension, unspecified Status: Acute Assessment and Plan: Patient had transient hypotension related to the acute blood loss anemia. Blood pressure became more stable. generally has chronically low blood pressure and was totally asymptomatic with creatinine remaining normal (2) Acute blood loss anemia: Code(s): D62 - Acute posthemorrhagic anemia Status: Acute Assessment and Plan: Hemoglobin was 9 on admission and dropped to 7.3. He was transfusion of 1 unit packed red blood cells. Hgb 8/10 at 6.2 so repeat transfusion ordered. Repeat Hgb 7.8. 8/ 10 post transfusion and 7.5 a.m. of discharge with no evidence of further bleeding (3) GI bleed: Qualifiers: GI bleed type/associated pathology: unspecified gastrointestinal hemorrhage type Qualified Code(s): K92.2 - Gastrointestinal hemorrhage, unspecified Code(s): K92.2 - Gastrointestinal hemorrhage, unspecified Status: Acute Assessment and Plan: Patient likely with an upper GI bleed to explain the acute blood loss and hypotension. Stool is guaiac positive. He does take NSAIDs in the form of ASA and occasional Aleve. EGD showing reflux esophagitis that bleeds on contact.. . remained on Protonix 40 daily and colonoscope revealed non bleeding diverticuli and internal hemorrhoids again with no evidence of blood loss continue to hold aspirin for the next is 4 weeks (4) CAD (coronary artery disease): Code(s): I25.10 - Atherosclerotic heart disease of [place] coronary artery without angina pectoris Status: Acute Assessment and Plan: Patient had abnormal stress test and ultimately underwent catheterization in January of 2018. This showed left anterior descending artery stenosis requiring drug-eluting stent placement. Patient has been doing well since that time. No chest pain with exertion. Will continue Lipitor but hold aspirin. Carotid US showing 50-69% stenosis right and >=70% stenosis but less than near-occlusion left internal carotid artery. ASA on hold. Continue Lipitor. CTA of neck was ordered but not performed. the patient requested to have procedure done as an outpatient and will see his primary to schedule (5) Hyperlipidemia, unspecified: Code(s): E78.5 - Hyperlipidemia, unspecified Status: Acute Assessment and Plan: LFTs within normal limits. Cholesterol panel last month showing LDL 57 and HDL 36. Continue atorvastatin. (6) Carotid bruit: Code(s): R09.89 - Other specified symptoms and signs involving the circulatory and respiratory systems Status: Acute Assessment and Plan: Left carotid bruit appreciated. Carotid ultrasound as above and CTA to be form is an outpatient (7) DVT prophylaxis: Code(s): Z29.9 - Encounter for prophylactic measures, unspecified Status: Acute Assessment and Plan: SCDs in light of GI bleed. while here DS: Summary Hospital Course Hospital Course: 80-year-old white male with known coronary disease admitted with upper GI bleed. Received 2 units of packed cells while here and hemoglobin stable at 7.5 at discharge with no further bleeding. EGD revealed esophagitis with friable mucosa the and colonoscope showed no evidence of bleeding with diverticuli and internal hemorrhoids. He will have a CBC and basic metabolic profile drawn in 1 week Protonix 40 daily ordered and hold his aspirin and nonsteroidals for 4 weeks Time Spent with Patient Time attestation: Total time spent providing and/or coordinating discharge services: 35 minutes Exam Narrative: Exam Narrative: condition on discharge blood pressure 96/46( chronically low) pulse 86 afebrile lungs clear CV regular rate rhyth
== END 2020-05-04 14:20 | disposition home or self-care (01) | DRG 381 ==
LOC: ANHED 11:43 → ANHIMU 12:09 → ANH3MED 05-04 13:36 → ANHIMU 05-09 08:21
PROVIDERS: Internal Medicine Gastroenterology; Admitting Provider Internal Medicine; Emergency Provider Emergency Medicine; PCP Internal Medicine; Visit Provider Internal Medicine
PROC: 0DJ08ZZ Inspection of Upper Intestinal Tract, Via Natural or Artificial Opening Endoscopic (ICD-10-PCS; CPT 43235; principal; 2020-05-02 13:00)
PROC: 0DJD8ZZ Inspection of Lower Intestinal Tract, Via Natural or Artificial Opening Endoscopic (ICD-10-PCS; CPT 45378; principal; 2020-05-04 11:30)
DX: K22.11 Ulcer of esophagus with bleeding (principal); D62 Acute posthemorrhagic anemia; K92.0 Hematemesis; K64.8 Other hemorrhoids; K57.30 Diverticulosis of large intestine without perforation or abscess without bleeding; I95.89 Other hypotension; E78.5 Hyperlipidemia, unspecified; R09.89 Other specified symptoms and signs involving the circulatory and respiratory systems; I25.10 Atherosclerotic heart disease of native coronary artery without angina pectoris; H90.5 Unspecified sensorineural hearing loss; Z79.82 Long term (current) use of aspirin; Z87.891 Personal history of nicotine dependence; Z98.42 Cataract extraction status, left eye; Z98.41 Cataract extraction status, right eye; Z90.49 Acquired absence of other specified parts of digestive tract
CPT/HCPCS: 36415; 36430; 80048; 80053; 82274; 85014; 85018; 85025; 85027; 85610; 85730; 86850; 86900; 86901; 86923; 93005; 93880; 96361; 96374; 96376; 99285; A9270; C9113; G0378; J2704; J7030; J7050; J7120; P9016

== ENCOUNTER 2020-05-09 08:00 | Outpatient (CLI) | payer MEDICARE, SELFPAY ==
[2020-05-09 08:36] LABS: Basophils Percent Auto 0.3 % (0.2-1.2); Eosinophils Absolute Auto 0.2 K/mm3 (0-0.3); Eosinophils Percent Auto 2.5 % (0-4.4); Hematocrit 27.1 % (42.0-52.0); Hemoglobin 8.6 g/dL (14.0-18.0); Immature Granulocyte Absolute 0.04 K/mm3 (0.00-0.031); Immature Granulocyte Percent A 0.6 % (0-0.5); Lymphocytes Absolute Auto 0.98 K/mm3 (0.9-3.2); Lymphocytes Percent Auto 14.1 % (18.3-44.2); Mean Corpuscular HGB Conc 31.7 g/dl (32-36); Mean Corpuscular Hemoglobin 29.1 pg (26-34); Mean Corpuscular Volume 91.6 fl (80-100); Mean Platelet Volume 10.1 fl (7.4-10.4); Monocytes Absolute Auto 0.3 K/mm3 (0.1-0.6); Monocytes Percent Auto 4.9 % (2.6-8.5); Neutrophils Absolute Auto 5.4 K/mm3 (1.3-6.7); Neutrophils Percent Auto 77.6 % (45.5-73.1); Platelet Count Result 312 k/mm3 (150-375); Red Blood Count 2.96 M/mm3 (4.6-6.20); Red Cell Distribution Width 15.1 % (11.5-14.5); White Blood Count 6.9 K/mm3 (4.5-10.0)
== END 2020-05-09 08:01 | disposition home or self-care (01) ==
LOC: ANHLAB 08:03
PROVIDERS: PCP Internal Medicine; Visit Provider Internal Medicine
DX: D62 Acute posthemorrhagic anemia (principal)
CPT/HCPCS: 36415; 85025

== ENCOUNTER 2021-08-06 12:29 | Observation (INO) | payer MEDICARE, SELFPAY ==
--- NOTE | ~2021-08-06 | CT_ITS ---
EXAMINATION: CT abdomen pelvis w con DATE: 08/06/2021 15:43 INDICATION: Abdominal pain. Hematuria. Dysuria. TECHNIQUE: Computed tomography (CT) of the abdomen and pelvis was performed with 100 mL Omnipaque 350 intravenous contrast. Automated exposure control and iterative reconstruction technique were employe d. The dose-length product was 851.37 mGy-cm. COMPARISON: None. FINDINGS: The visualized portions of the lung bases demonstrate emphysema and mild atelectasis. No pl eural effusion. The heart size is normal. There is a small pericardial effusion. There are coronary a rtery calcifications. There are calcifications of the aortic valve. There is a small sliding hiatal h ernia. There is a 12 mm cyst in the liver. There are changes of cholecystectomy. The spleen is normal . Calcifications in the pancreas are consistent with chronic pancreatitis. Right adrenal gland is nor mal. 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 Right kidney is normal. There are cysts in left kidney measuring up to 2.0 cm. The prostate i s moderately enlarged. There is diffuse bladder wall thickening with bladder diverticula and surround ing fat stranding. There is a small left inguinal hernia containing fat. There is diverticulosis of t he colon without evidence of diverticulitis. The appendix is normal. There are no dilated loops of kiet wel. 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 There are no patho logically enlarged lymph nodes. There is no free intraperitoneal fluid. There is a 2.1 cm eccentric a neurysm of left common iliac artery. There is lumbar levoscoliosis and severe spondylosis. There are chronic bilateral L5 pars defects with 17 mm anterolisthesis of L5 on S1 and interbody fusion at L5-S 1. IMPRESSION: 1. Diffuse bladder wall thickening with bladder diverticula and surrounding fat stranding. These find ings may be secondary to chronic outlet obstruction, cystitis, and/or neurogenic bladder. 2. 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 The aneurysm and aorto toge ther measure 4.0 cm. 3. Small sliding hiatal hernia. 4. Small pericardial effusion. Reviewed, dictated and finalized at location A. [facility] IMPRESSION: 1. Diffuse bladder wall thickening with bladder diverticula and surrounding fat stranding. These findings may be secondary to chronic outlet obstruction, cyst itis, and/or neurogenic bladder. 2. 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 The a neurysm and aorto together measure 4.0 cm. 3. Small sliding hiatal hernia. 4. Small pericardial effusion.
[2021-08-06 12:33] VITALS: BP 153/75; PULSE 107; RESP 18; TEMP 37.2; O2SAT 98
--- NOTE | 2021-08-06 14:19 | ED.GENADULT ---
HPI - General Adult General Chief complaint: Urogenital-Male Stated complaint: blood in urine Time Seen by Provider: 08/06/21 13:48 Source: RN notes reviewed History of Present Illness HPI narrative: Patient presents emergency department from home for hematuria. Patient states that 2 days ago he was having dysuria and at that time had drink a large amount of water states that that time it seemed to improve his dysuria however yesterday he began to notice blood in his urine he denies any fevers or chills abdominal pain nausea vomiting diarrhea or any other symptoms denies any penile or testicular pain denies being on any blood thinners except for a baby aspirin daily Related Data Home Medications Medication Instructions Recorded Confirmed aspirin 81 mg tablet,delayed 81 mg PO DAILY 10/14/19 05/01/20 release Allergies Allergy/AdvReac Type Severity Reaction Status Date / Time No Known Allergies Allergy Verified 08/06/21 14:35 Review of Systems Review of Systems: Gen.: Denies fevers or chills ENT: Denies congestion Respiratory: Denies shortness of breath or cough CV: Denies chest pain or palpitations GI: Denies abdominal pain nausea, emesis or diarrhea Musculoskeletal: Denies back pain or muscle pain Neuro: Denies numbness, tingling, weakness or focal weakness Skin: Denies rash Except as documented, all other systems reviewed and negative [facility] Past Medical History Medical History (Updated 08/06/21 @ 17:10 by William Preciado DO) CAD (coronary artery disease) Hx of prox and Mid LAD stent placement January 2018 Hearing loss Sensorineural Hyperlipidemia, unspecified Surgical History Surgical History Hx of cataract surgery Hx of cholecystectomy Family History Family History Mother Diabetes mellitus Family history of diabetes mellitus in first degree relative Father Family history of anemia Sibling Patient's sister is in good health Patient's brother is in good health Social History Social History Social History: Lives with and does have a dog. Quit tobacco at 40yo after smoking 2.5ppd for 30 yrs (started at age 10yo). No alcohol or drug use. Full code. He nominates his to be the individual who would make medical decisions for him if he is unable. Smoking status: Former smoker Smoking end date: 09/23/77 Alcohol intake: never Substance use: never Gender identity (if verbalized by the patient): Male Spiritual care concerns: No Exam Narrative: APPEARANCE: No acute distress, nontoxic, resting in bed EYES: EOMI HEENT: Normocephalic, atraumatic, OMM RESPIRATORY: No respiratory distress Clear to auscultation bilaterally with no rhonchi wheezing or rales. CARDIOVASCULAR: Regular rate and rhythm without murmurs rubs or gallops. ABDOMINAL: Soft, nontender, nondistended, no rebound or guarding MUSCULOSKELETAl: Moves all extremities. No clubbing, cyanosis or edema. NEURO: Awake and alert. Following commands, speech normal, no focal deficits SKIN:: Warm, dry. No rashes lesions or abrasions PSYCHIATRIC: Normal affect/mood, Course Course Emergency Course: Discussed with SUZE Valdez for Dr. Tomlinson presentation work-up agrees with admission at this time Discussed with patient and family results of workup and diagnosis. Discussed need for admission. Patient and family understand and agree to current treatment plan Vital Signs Vital signs: Vital Signs Temperature 98.9 F 08/06/21 12:33 Pulse Rate 107 H 08/06/21 12:33 Respiratory Rate 18 08/06/21 12:33 Blood Pressure 153/75 H 08/06/21 12:33 Pulse Oximetry 98 08/06/21 12:33 Temperature 97.7 F 08/06/21 14:32 Pulse Rate 107 H 08/06/21 12:33 Respiratory Rate 14 08/06/21 14:32 Blood Pressure 138/88 08/06/21 14:32 Pulse Oximetry 97
[2021-08-06 14:32] VITALS: BP 138/88; RESP 14; TEMP 36.5; O2SAT 97
[2021-08-06 14:38] LABS: Add Urine Microscopic? YES; Appearance Urine Cloudy (Clear); Bacteria Urine 3+ /hpf; Bilirubin Urine Negative (Negative); Blood Urine 3+ (Negative); Color Urine Amber (Yellow); Glucose Urine UA Negative (Negative); Ketones Urine Negative (Negative); Leukocyte Esterase Ur 3+ LEU/UL (Negative); Mucus Urine Rare /lpf; Nitrate Urine Positive (Negative); Protein Urine 3+ mg/dL (Negative); RBC Urine 21-50 /hpf (0-2); Specific Grav Ur 1.015 (1.001-1.035); Squamous Epithelial Cell Urine Rare /hpf (Few); Urobilinogen Urine Negative mg/dL (<2.0); WBC Urine >75 /hpf
[2021-08-06 14:40] LABS: Anion Gap 11 mmol/L (8-16); Blood Urea Nitrogen 15 mg/dL (9-20); Calcium 8.8 mg/dL (8.4-10.2); Carbon Dioxide 22 mmol/L (22-30); Chloride 98 mmol/L (98-107); Estimated CRCL calculation 40 ml/min; Estimated Glomerular Filt Rate 58; Glucose 118 mg/dL (65-110); Potassium 4.1 mmol/L (3.4-5.0); Sodium 131 mmol/L (137-145)
[2021-08-06 14:43] LABS: Hematocrit 43.7 % (42.0-52.0); Hemoglobin 15.1 g/dL (14.0-18.0); Mean Corpuscular HGB Conc 34.6 g/dl (32-36); Mean Corpuscular Hemoglobin 30.9 pg (26-34); Mean Corpuscular Volume 89.4 fl (80-100); Mean Platelet Volume 9.9 fl (7.4-10.4); Platelet Count Result 182 k/mm3 (150-375); Red Blood Count 4.89 M/mm3 (4.6-6.20); Red Cell Distribution Width 13.2 % (11.5-14.5); White Blood Count 19.3 K/mm3 (4.5-10.0)
[2021-08-06 15:03] LABS: Band Neutrophils Percent 2 % (0-6); Lymphocytes Absolute Manual 1.54 K/mm3 (1.1-4.5); Monocytes Absolute Manual 1.15 K/mm3 (0.1-0.90); Monocytes Percent Manual 6 % (3-9); Neutrophils Absolute Manual 16.59 K/mm3 (1.3-6.7); Neutrophils Percent Manual 84 % (46-73); Total Cells Counted 100
[2021-08-06 15:04] LABS: Platelet Estimate Adequate (Adequate)
[2021-08-06 15:05] LABS: Atypical Lymphocytes Present
[2021-08-06 15:34] LABS: Lactic Acid Reflex 1.3 mmol/L (0.7-2.1)
[2021-08-06] MEDS: SODIUM CHLORIDE 0.9% IV 1,000 ML 999 ML IV CONT (15:43)
[2021-08-06] MEDS: SODIUM CHLORIDE 0.9% IV 1,000 ML 100 ML IV CONT (18:43)
--- NOTE | 2021-08-06 18:55 | ADMGEN ---
This patient, Osmani Ma Jr., was admitted to Medical Room 259-01. Patient/family oriented to hospital policies and general routines including ID bracelet, bed and alarms, visiting hours, pain management, procedures, bathroom and other care routines, personal items, smoking policy, room service/diet, and visiting hours. Information on how to activate the Rapid Response Team has been discussed. Patient/Family are encouraged to report perceived risks to care and to ask questions if they do not understand what they are told or what they should do.
--- NOTE | 2021-08-06 19:00 | PM.IMHP ---
H&P: HPI History of Present Illness Date/Time: 08/06/21 19:00 Chief Complaint: Difficulties urinating and blood in urine. Narrative: This is an 81-year-old male with coronary artery disease who presented to the emergency department earlier today from home with complaints of difficulties urinating and blood in the urine. Over the past 1 week or so he has noticed that his urine stream has been much weaker than usual and over the past couple of days he has developed dysuria. Early this morning he noticed a large amount of blood in his urine and he has been having difficulties starting his stream, dribbling, and urinary frequency including nocturia. CT of the abdomen and pelvis showed diffuse bladder wall thickening with bladder diverticula and surrounding fat stranding. He was also found to have a white count of 19.3 and he is being admitted in this setting. He has never had similar symptoms in the past and he maintains that he has not had issues with his prostate. He denies abdominal pain, lower back pain, and discomfort in the perineal region. No penile or testicular pain. No fever, chills, or sweats. He denies nausea and vomiting. Review of Systems Review of Systems: 12 systems were reviewed. No recent cold or flu symptoms. He denies sick contacts. No chest pain or shortness of breath. No nausea, vomiting, or diarrhea. Except as documented, all other systems were reviewed and are negative. [facility] Past Medical History Medical History (Updated 08/06/21 @ 21:45 by Courtney Capellan PA-C) Carotid artery disease Carotid Doppler ultrasound on 05/02/2020 showed 50 to 69% stenosis in the right internal carotid artery and greater than 70 [place] stenosis but less than near occlusion in the left internal carotid artery. Coronary artery disease (01/2018) Status post stent to the LAD x2. 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 Upper GI bleed (04/2020) EGD showed reflux esophagitis that bleeds on contact. Colonoscopy revealed nonbleeding diverticuli and internal hemorrhoids with no evidence of bleeding. Surgical History Surgical History (Updated 08/06/21 @ 21:30 by Courtney Capellan PA-C) History of bilateral cataract extraction History of cardiac catheterization (01/2018) Stent to the proximal and mid LAD. History of cholecystectomy Family History Family History Mother Diabetes mellitus Family history of diabetes mellitus in first degree relative Father Family history of anemia Sibling Patient's sister is in good health Patient's brother is in good health Social History Social History (Updated 08/06/21 @ 21:31 by Courtney Capellan PA-C) Social History: The patient lives in [place] with his . He smoked 2.5 packs of cigarettes a day for about 30 years and quit 1977. No alcohol illicit substance abuse. 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 He designates his Diane Ma as his surrogate decision-maker and he wishes to be a full code. Meds Home Medications and Allergies Home Medications Medication Instructions Recorded Confirmed Type aspirin 81 mg tablet,delayed 81 mg PO DAILY 10/14/19 08/06/21 History release atorvastatin 40 mg PO DAILY 08/06/21 08/06/21 History Allergies Allergy/AdvReac Type Severity Reaction Status Date / Time No Known Allergies Allergy Verified 08/06/21 14:35 Vital Signs Vital Signs - 24 hr 08/06/21 12:33 08/06/21 14:32 08/06/21 19:02 Temperature 98.9 F 97.7 F 98.5 F Pulse Rate 107 H 68 Respiratory Rate 18 14 14 Blood Pressure 153/75 H 138/88 148/97 H Pulse Oximetry 98 97 100 08/06/21 19:16 08/06/21 20:18 Temperature 97.7 F 98.3 F Pulse Rate 100 100 Respiratory Rate 14 18 Blood Pressure 112/69 129/65 Pulse Oximetry 100 95 Exam Narrative: General: Wel
[2021-08-06 19:02] VITALS: BP 148/97; PULSE 68; RESP 14; TEMP 36.9; O2SAT 100
[2021-08-06 19:16] VITALS: BP 112/69; PULSE 100; RESP 14; TEMP 36.5; O2SAT 100
[2021-08-06 20:18] VITALS: BP 129/65; PULSE 100; RESP 18; TEMP 36.8; O2SAT 95
[2021-08-06 20:59] VITALS: BMI 25.9
[2021-08-07 06:00] VITALS: BP 109/73; PULSE 97; RESP 16; TEMP 36.7; O2SAT 96
[2021-08-07 08:15] LABS: Basophils Percent Auto 0.1 % (0.2-1.2); Eosinophils Absolute Auto 0.1 K/mm3 (0-0.3); Eosinophils Percent Auto 0.4 % (0-4.4); Hematocrit 44.6 % (42.0-52.0); Hemoglobin 15.1 g/dL (14.0-18.0); Immature Granulocyte Absolute 0.08 K/mm3 (0.00-0.031); Immature Granulocyte Percent A 0.6 % (0-0.5); Lymphocytes Percent Auto 5.7 % (18.3-44.2); Mean Corpuscular HGB Conc 33.9 g/dl (32-36); Mean Corpuscular Volume 91.6 fl (80-100); Mean Platelet Volume 9.9 fl (7.4-10.4); Monocytes Absolute Auto 0.7 K/mm3 (0.1-0.6); Monocytes Percent Auto 4.8 % (2.6-8.5); Neutrophils Absolute Auto 12.5 K/mm3 (1.3-6.7); Neutrophils Percent Auto 88.4 % (45.5-73.1); Platelet Count Result 173 k/mm3 (150-375); Red Blood Count 4.87 M/mm3 (4.6-6.20); Red Cell Distribution Width 13.2 % (11.5-14.5); White Blood Count 14.1 K/mm3 (4.5-10.0)
[2021-08-07 08:30] LABS: Anion Gap 11 mmol/L (8-16); Blood Urea Nitrogen 14 mg/dL (9-20); Calcium 8.7 mg/dL (8.4-10.2); Carbon Dioxide 24 mmol/L (22-30); Chloride 99 mmol/L (98-107); Estimated CRCL calculation 44 ml/min; Estimated Glomerular Filt Rate > 60; Glucose 104 mg/dL (65-110); Magnesium 2.1 mg/dL (1.6-2.3); Potassium 4.2 mmol/L (3.4-5.0); Sodium 134 mmol/L (137-145)
[2021-08-07 08:38] VITALS: O2SAT 94
--- NOTE | 2021-08-07 08:47 | PM.IMPN ---
Progress Note: A&P Assessment and Plan (1) Sepsis: Code(s): A41.9 - Sepsis, unspecified organism Status: Acute Assessment and Plan: Tachycardia and leukocytosis POA Lactic acid levels within normal limits Follow BC and UC Continue with rocephin (2) Urinary tract infection: Code(s): N39.0 - Urinary tract infection, site not specified Status: Acute Assessment and Plan: Continue with Rocephin for now Follow UC (3) Hematuria: Code(s): R31.9 - Hematuria, unspecified Status: Acute Assessment and Plan: Improving CT showed diffuse bladder wall thickening with bladder diverticula and surrounding fat stranding. These findings may be secondary to chronic outlet obstruction, cystitis, and/or neurogenic bladder. Urology consulted, recommendations appreciated Plan for f/u o/pt with for cystoscopy (4) Suprarenal aortic aneurysm: Code(s): I71.4 - Abdominal aortic aneurysm, without rupture Status: Acute Assessment and Plan: 2.2 saccular aneurysm noted on CT imaging Will need outpatient follow-up ?vascular surgeon given his known carotid artery disease (5) Hyponatremia: Code(s): E87.1 - Hypo-osmolality and hyponatremia Status: Acute Assessment and Plan: Improving Na+ 134 today form 131.=\ S/p 1L of normal saline in the emergency department Monitor (6) Coronary artery disease: Onset Date: 01/2018 Code(s): I25.10 - Atherosclerotic heart disease of [place] coronary artery without angina pectoris Status: Inactive Assessment and Plan: No acute issues. Aspirin has been placed on hold given reports of hematuria. Continue statin. (7) BPH with obstruction/lower urinary tract symptoms: Code(s): N40.1 - Benign prostatic hyperplasia with lower urinary tract symptoms; N13.8 - Other obstructive and reflux uropathy Status: Acute Assessment and Plan: Urology following, recommendations appreciated Finasteride and Flomax initiated per urology Subjective Date/time seen: 08/07/21 08:47 Interval history: Pt seen this a.m.; labs, vs and diagnostic reports reviewed; no acute events overnight; denies any urinary symptoms Review of Systems Review of Systems: All systems reviewed & are unremarkable except as noted in HPI and below Exam Const: General: no acute distress, alert and awake Orientation/consciousness: patient oriented x3 HENMT: Head: normocephalic and atraumatic Ears: external ears normal Face and sinus: face symmetric Mouth: Yes Normal oral and palatal mucosa present Eyes: EOM: EOMs intact bilaterally Neck: Neck: full ROM, trachea midline and no JVD Resp: Effort & Inspection: normal respiratory effort Auscultation: clear to auscultation bilaterally Cardio: Jugular venous distension: no JVD Rate: regular rate Rhythm: regular rhythm Heart sounds: S1 normal heart sound present and S2 normal heart sound present GI: Inspection: normal to inspection GI Palp: Yes Soft to palpation Percussion: Yes normal to percussion Auscultation: normal bowel sounds : General: Yes no CVA tenderness Skin: General skin exam: normal color Rashes: no rashes Neuro: General: patient oriented x3 and CN's II-XI intact bilaterally Speech: normal speech Extrem: General: full ROM and no clubbing, cyanosis or edema Psych: Appearance: grossly normal Affect: normal affect Judgement: Good judgement present (Psych) Objective Data Vital Signs Vital Signs: Vital Signs - 24 hr 08/06/21 12:33 08/06/21 14:32 08/06/21 19:02 Temperature 37.2 C 36.5 C 36.9 C Pulse Rate 107 H 68 Respiratory Rate 18 14 14 Blood Pressure 153/75 H 138/88 148/97 H Pulse Oximetry 98 97 100 08/06/21 19:16 08/06/21 20:18 08/07/21 06:00 Temperature 36.5 C 36.8 C 36.7 C Pulse Rate 100 100 97 Respiratory Rate 14 18 16 Blood Pressure 112/69 129/65 109/73 Pulse Oximetry 100 95 96 08/07/21 08:38 Temperature Pul
--- NOTE | 2021-08-07 08:47 | WPDURCON ---
Assessment and Plan Assessment and plan (1) Hematuria: Code(s): R31.9 - Hematuria, unspecified Status: Acute Assessment and Plan: UTI versus untreated BPH CT of upper tracts is normal. I suggest he f/u as an outpatient for a cystscopy with Dr. Jernigan or Dany. No interventions needed at this time. (2) Urinary tract infection: Code(s): N39.0 - Urinary tract infection, site not specified Status: Acute Assessment and Plan: Continue Ceftriaxone, tailor antibiotics to culture results. Cultures are pending. (3) BPH with obstruction/lower urinary tract symptoms: Code(s): N40.1 - Benign prostatic hyperplasia with lower urinary tract symptoms; N13.8 - Other obstructive and reflux uropathy Status: Acute Assessment and Plan: Bladder scan and call with amount post void. Start Finasteride and Flomax QD. Urology Consult Note HPI Date Seen: 08/07/21 Requesting Physician: Gabino Tomlinson MD Primary Care Provider: Andres Rodríguez DO Consult Narrative Narrative: Osmani Ma Jr. is a 81 year old male who presented to the ER yesterday for dysuria and gross hematuria x 2 days. He states he started drinking more water than normal when his symptoms started, but the symptoms only improved for a short time and then came back. He also states he was straining and had a slowed stream with dribbling during urination. He states that normally he has nocturia x2/night and urinates q 1 hour daily. He denies incontinence. He states he normally has a slow stream and hesitancy in the morning but not in the afternoon. He has never been treated for overactive bladder or BPH. This is the first episode of dysuria and hematuria. His WBC is elevated at 19.3, creatinine is also elevated at 1.90. His CT scan shows bladder wall thickening and moderate enlargement of his prostate but otherwise his upper tracts are normal. He is sitting up in bed and is able to provide a thorough medical history. Review of Systems Cardiovascular: Cardiovascular: Denies chest pain Respiratory: Respiratory: Reports no additional respiratory complaints Gastrointestinal: Gastrointestinal: Denies abdominal pain, Denies nausea and Denies vomiting Genitourinary: Genitourinary: Reports hematuria, Reports dysuria, Denies flank pain, Reports urinary frequency and Reports urinary hesitancy [facility] Past Medical History Medical History Carotid artery disease Carotid Doppler ultrasound on 05/02/2020 showed 50 to 69% stenosis in the right internal carotid artery and greater than 70 Romanian stenosis but less than near occlusion in the left internal carotid artery. Coronary artery disease (01/2018) Status post stent to the LAD x2. 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 Upper GI bleed (04/2020) EGD showed reflux esophagitis that bleeds on contact. Colonoscopy revealed nonbleeding diverticuli and internal hemorrhoids with no evidence of bleeding. Surgical History Surgical History History of bilateral cataract extraction History of cardiac catheterization (01/2018) Stent to the proximal and mid LAD. History of cholecystectomy Family History Family History Mother Diabetes mellitus Family history of diabetes mellitus in first degree relative Father Family history of anemia Sibling Patient's sister is in good health Patient's brother is in good health Social History Social History Social History: The patient lives in [place] with his . He smoked 2.5 packs of cigarettes a day for about 30 years and quit 1977. No alcohol illicit substance abuse. 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
[2021-08-07] MEDS: TAMSULOSIN HCL 0.4 MG CAPSULE PO (09:11)
[2021-08-07] MEDS: FINASTERIDE 5 MG TABLET PO (09:11)
[2021-08-07 10:33] LABS: Prostate Specific Antigen 11.6 ng/mL (< OR = 4.0)
[2021-08-07 15:55] VITALS: BP 130/53; PULSE 105; RESP 16; TEMP 36.1; O2SAT 95
[2021-08-07 22:00] VITALS: BP 117/84; PULSE 100; RESP 18; TEMP 36.6; O2SAT 97
[2021-08-08 05:57] LABS: Hematocrit 39.9 % (42.0-52.0); Hemoglobin 13.6 g/dL (14.0-18.0); Mean Corpuscular HGB Conc 34.1 g/dl (32-36); Mean Corpuscular Hemoglobin 30.3 pg (26-34); Mean Corpuscular Volume 88.9 fl (80-100); Mean Platelet Volume 9.9 fl (7.4-10.4); Platelet Count Result 168 k/mm3 (150-375); Red Blood Count 4.49 M/mm3 (4.6-6.20); Red Cell Distribution Width 12.9 % (11.5-14.5); White Blood Count 7.9 K/mm3 (4.5-10.0)
[2021-08-08 06:00] VITALS: BP 103/52; PULSE 87; RESP 16; TEMP 36.6; O2SAT 95
[2021-08-08 06:07] LABS: Anion Gap 8 mmol/L (8-16); Blood Urea Nitrogen 16 mg/dL (9-20); Calcium 8.2 mg/dL (8.4-10.2); Carbon Dioxide 25 mmol/L (22-30); Chloride 99 mmol/L (98-107); Estimated CRCL calculation 44 ml/min; Estimated Glomerular Filt Rate > 60; Glucose 94 mg/dL (65-110); Potassium 3.4 mmol/L (3.4-5.0); Sodium 132 mmol/L (137-145)
[2021-08-08] MEDS: TAMSULOSIN HCL 0.4 MG CAPSULE PO (08:37)
[2021-08-08] MEDS: FINASTERIDE 5 MG TABLET PO (08:37)
--- NOTE | 2021-08-08 13:09 | WPDUROPN2 ---
Progress Note: A&P Assessment and Plan (1) BPH with obstruction/lower urinary tract symptoms: Code(s): N40.1 - Benign prostatic hyperplasia with lower urinary tract symptoms; N13.8 - Other obstructive and reflux uropathy Status: Acute Assessment and Plan: Continue Tamsulosin and Finasteride and f/u in our office in 3 months. No further evaluation, ok to discharge at any time from urologic standpoint. (2) Urinary tract infection: Code(s): N39.0 - Urinary tract infection, site not specified Status: Acute Assessment and Plan: Continue IV antibiotics, tailor to culture sensitivity report. Subjective Subjective Date/Time Seen: 08/08/21 13:09 Patient is doing well today, he notes improvement of his urine stream after use of Flomax and Finasteride. His PSA was elevated as expected at 11.6, which is likely d/t UTI, but a baseline PSA was needed prior to starting Finasteride. His urine culture is preliminarily showing growth of Gram negative Baccilli. He is afebrile and states he is having longer intervals in between urination q 2-3 hours instead of every hour. He denies gross hematuria and dysuria today. Bladder scan yesterday was 230cc. Review of Systems Respiratory: Respiratory: Reports no additional respiratory complaints Gastrointestinal: Gastrointestinal: Denies abdominal pain, Denies nausea and Denies vomiting Genitourinary: Genitourinary: Denies hematuria, Denies dysuria, Denies flank pain, Denies urinary frequency, Denies urinary hesitancy, Denies urinary incontinence and Denies urinary urgency Exam Resp: Effort & Inspection: normal respiratory effort Cardio: Rate: regular rate GI: GI Palp: Yes Soft to palpation and No Tenderness to palpation present (GI) : General: Yes no CVA tenderness Extrem: General: no edema Objective Data Vital Signs Vital Signs: Vital Signs - 24 hr 08/07/21 15:55 08/07/21 22:00 08/08/21 06:00 Temperature 96.9 F L 97.9 F 97.8 F Pulse Rate 105 H 100 87 Respiratory Rate 16 18 16 Blood Pressure 130/53 L 117/84 103/52 L Pulse Oximetry 95 97 95 Intake/Output Intake/Output: Intake & Output 08/05/21 08/06/21 08/07/21 08/08/21 23:59 23:59 23:59 23:59 Intake Total 1050 1550 640 Output Total 800 Balance 1050 750 640 Meds/Results Medications: Active Medications Generic Name Dose Route Start Last Admin Trade Name Estefany PRN Reason Stop Dose Admin Finasteride 5 mg 08/07/21 09:00 08/08/21 08:37 Finasteride 5 Mg Tablet PO 5 mg QAM DUSTY Administration Ceftriaxone Sodium/Dextrose 1 gm in 50 mls @ 100 mls/hr 08/07/21 09:00 08/08/21 10:30 Rocephin 1 Gm/D5w 50 Ml IVPB Infused Q24H DUSTY Infusion Tamsulosin HCl 0.4 mg 08/07/21 09:00 08/08/21 08:37 Tamsulosin Hcl 0.4 Mg Capsule PO 0.4 mg QAM DUSTY Administration Radiology Results: ITS Impressions Abdomen/Pelvis CT 08/06/21 15:48 IMPRESSION: 1. Diffuse bladder wall thickening with bladder diverticula and surrounding fat stranding. These findings may be secondary to chronic outlet obstruction, cystitis, and/or neurogenic bladder. 2. 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 The aneurysm and aorto together measure 4.0 cm. 3. Small sliding hiatal hernia. 4. Small pericardial effusion. Labs Labs: Laboratory Results - last 24 hr 08/08/21 08/08/21 05:41 05:41 WBC 7.9 RBC 4.49 L Hgb 13.6 L Hct 39.9 L MCV 88.9 MCH 30.3 MCHC 34.1 RDW 12.9 Plt Count 168 MPV 9.9 Sodium 132 L Potassium 3.4 Chloride 99 Carbon Dioxide 25 Anion Gap 8 BUN 16 Creatinine 1.10 Estim Creat Clear Calc 44 Estimated GFR > 60 Glucose 94 Calcium 8.2 L Quality VTE Prophylaxis VTE prophylaxis: mechanical ordered
[2021-08-08 14:00] VITALS: BP 107/56; PULSE 95; RESP 18; TEMP 36.4; O2SAT 92
--- NOTE | 2021-08-08 14:37 | PM.IMPN ---
Progress Note: A&P Assessment and Plan (1) Sepsis: Code(s): A41.9 - Sepsis, unspecified organism Status: Acute Assessment and Plan: Tachycardia and leukocytosis POA Lactic acid levels within normal limits BC NGTD UC-->Proteus Mirabilis Continue with IV rocephin (2) Urinary tract infection: Code(s): N39.0 - Urinary tract infection, site not specified Status: Acute Assessment and Plan: Continue with Rocephin for now UC-->Proteus Mirabilis (3) Hematuria: Code(s): R31.9 - Hematuria, unspecified Status: Acute Assessment and Plan: Improving CT showed diffuse bladder wall thickening with bladder diverticula and surrounding fat stranding. These findings may be secondary to chronic outlet obstruction, cystitis, and/or neurogenic bladder. Urology consulted, recommendations appreciated Plan for f/u o/pt with for cystoscopy (4) Suprarenal aortic aneurysm: Code(s): I71.4 - Abdominal aortic aneurysm, without rupture Status: Acute Assessment and Plan: 2.2 saccular aneurysm noted on CT imaging Will need outpatient follow-up ?vascular surgeon given his known carotid artery disease (5) Hyponatremia: Code(s): E87.1 - Hypo-osmolality and hyponatremia Status: Acute Assessment and Plan: Improving Na+ 134-->132 today, from 131 S/p 1L of normal saline in the emergency department Monitor (6) Coronary artery disease: Onset Date: 01/2018 Code(s): I25.10 - Atherosclerotic heart disease of [place] coronary artery without angina pectoris Status: Inactive Assessment and Plan: No acute issues. Aspirin has been placed on hold given reports of hematuria. Continue statin. (7) BPH with obstruction/lower urinary tract symptoms: Code(s): N40.1 - Benign prostatic hyperplasia with lower urinary tract symptoms; N13.8 - Other obstructive and reflux uropathy Status: Acute Assessment and Plan: Urology following, recommendations appreciated Finasteride and Flomax initiated per urology Time Spent With Patient Time: D/c home with oral antibiotics tomorrow if final BC neg Subjective Date/time seen: 08/08/21 14:37 Interval history: 08/07 Pt seen this a.m.; labs, vs and diagnostic reports reviewed; no acute events overnight; denies any urinary symptoms 08/08 pt seen this a.m.; overall pt is doing well, at the bedside; UC grew Proteus Mirabilis Review of Systems Review of Systems: All systems reviewed & are unremarkable except as noted in HPI and below Exam Const: General: no acute distress, alert and awake Orientation/consciousness: patient oriented x3 HENMT: Head: normocephalic and atraumatic Ears: external ears normal Face and sinus: face symmetric Mouth: Yes Normal oral and palatal mucosa present Eyes: EOM: EOMs intact bilaterally Neck: Neck: full ROM, trachea midline and no JVD Resp: Effort & Inspection: normal respiratory effort Auscultation: clear to auscultation bilaterally Cardio: Jugular venous distension: no JVD Rate: regular rate Rhythm: regular rhythm Heart sounds: S1 normal heart sound present and S2 normal heart sound present GI: Inspection: normal to inspection Auscultation: normal bowel sounds : General: Yes no CVA tenderness Back/Spine/Pelvis: Back: no CVA tenderness Skin: General skin exam: normal color Rashes: no rashes Neuro: General: patient oriented x3 and CN's II-XI intact bilaterally Speech: normal speech Extrem: General: full ROM and no clubbing, cyanosis or edema Psych: Appearance: grossly normal Affect: normal affect Judgement: Good judgement present (Psych) Objective Data Vital Signs Vital Signs: Vital Signs - 24 hr 08/07/21 15:55 08/07/21 22:00 08/08/21 06:00 Temperature 36.1 C L 36.6 C 36.6 C Pulse Rate 105 H 100 87 Respiratory Rate 16 18 16 Blood Pressure 130/53 L 117/84 103/52 L Pulse Oximetry 95 97 95 Intake/Output Intake/
[2021-08-08 20:12] VITALS: O2SAT 95
[2021-08-08 20:46] VITALS: BP 147/67; PULSE 90; RESP 18; TEMP 36.2; O2SAT 95
[2021-08-09 05:24] VITALS: BP 121/60; PULSE 72; RESP 18; TEMP 36.4; O2SAT 95
[2021-08-09 05:39] LABS: Hematocrit 40.2 % (42.0-52.0); Hemoglobin 13.5 g/dL (14.0-18.0); Mean Corpuscular HGB Conc 33.6 g/dl (32-36); Mean Corpuscular Hemoglobin 29.9 pg (26-34); Mean Corpuscular Volume 89.1 fl (80-100); Mean Platelet Volume 9.9 fl (7.4-10.4); Platelet Count Result 210 k/mm3 (150-375); Red Blood Count 4.51 M/mm3 (4.6-6.20); Red Cell Distribution Width 12.9 % (11.5-14.5); White Blood Count 6.7 K/mm3 (4.5-10.0)
[2021-08-09 05:54] LABS: Anion Gap 9 mmol/L (8-16); Blood Urea Nitrogen 14 mg/dL (9-20); Calcium 8.3 mg/dL (8.4-10.2); Carbon Dioxide 21 mmol/L (22-30); Chloride 102 mmol/L (98-107); Estimated CRCL calculation 48 ml/min; Estimated Glomerular Filt Rate > 60; Glucose 94 mg/dL (65-110); Potassium 3.5 mmol/L (3.4-5.0); Sodium 132 mmol/L (137-145)
[2021-08-09] MEDS: FINASTERIDE 5 MG TABLET PO (09:05)
[2021-08-09] MEDS: TAMSULOSIN HCL 0.4 MG CAPSULE PO (09:05)
--- NOTE | 2021-08-09 13:23 | PM.DS ---
DS: Admitting Diagnosis Discharge Date 08/09/2021 Admitting Diagnosis Hematuria DS: Discharge Diagnosis Discharge Diagnosis (1) Sepsis: Code(s): A41.9 - Sepsis, unspecified organism Status: Acute Assessment and Plan: Tachycardia and leukocytosis POA Lactic acid levels within normal limits BC NGTD and remains negative UC-->Proteus Mirabilis sensitive to Rocephin was switched to cefdinir at discharge he got 3 doses does will give it for 5 more days for complicated UTI related to obstruction (2) Urinary tract infection: Code(s): N39.0 - Urinary tract infection, site not specified Status: Acute Assessment and Plan: Continue with Rocephin for now UC-->Proteus Mirabilis Stated to cefdinir at discharge (3) Hematuria: Code(s): R31.9 - Hematuria, unspecified Status: Acute Assessment and Plan: CT showed diffuse bladder wall thickening with bladder diverticula and surrounding fat stranding. These findings may be secondary to chronic outlet obstruction, cystitis, and/or neurogenic bladder. Urology consulted, recommendations appreciated Plan for f/u o/pt with for cystoscopy follow-up with Urology in 3 months PSA elevated at 11.6 On Flomax and finasteride as as ordered. Hematuria has resolved (4) Suprarenal aortic aneurysm: Code(s): I71.4 - Abdominal aortic aneurysm, without rupture Status: Acute Assessment and Plan: 2.2 saccular aneurysm noted on CT imaging Will need continued follow-up for monitoring his aortic aneurysm as an outpatient basis (5) Hyponatremia: Code(s): E87.1 - Hypo-osmolality and hyponatremia Status: Acute Assessment and Plan: Improving Na+ 134-->132 today, from 131 S/p 1L of normal saline in the emergency department Monitor remains stable (6) Coronary artery disease: Onset Date: 01/2018 Code(s): I25.10 - Atherosclerotic heart disease of [place] coronary artery without angina pectoris Status: Inactive Assessment and Plan: No acute issues. Aspirin has been placed on hold given reports of hematuria. Continue statin. Resume aspirin at discharge hematuria now has resolved (7) BPH with obstruction/lower urinary tract symptoms: Code(s): N40.1 - Benign prostatic hyperplasia with lower urinary tract symptoms; N13.8 - Other obstructive and reflux uropathy Status: Acute Assessment and Plan: Urology following, recommendations appreciated Finasteride and Flomax initiated per urology DS: Summary Hospital Course Hospital Course: See above Time Spent with Patient Time attestation: Total time spent providing and/or coordinating discharge services: 40 minutes Exam Narrative: General: Well-developed male sitting in a chair at side of the bed no distress. Weight: 77.4 kg. BMI: 25.9 HEENT: Patient is hard of hearing. Wearing glasses. PERRL, EOMI. Sclerae anicteric. Oral mucosa moist. Neck: Supple. Left carotid bruit with known disease. Respiratory: Lungs are clear to auscultation bilaterally. Cardiovascular: Regular rate and rhythm with S1-S2. Soft murmur at the upper sternal border Gastrointestinal: Abdomen is soft, slightly firm, and nontender with positive bowel sounds. No CVA tenderness. Skin: Warm and dry. No rash or lesions on limited exam. Extremities: No cyanosis, clubbing, or edema. Radial and pedal pulses intact. Neurological: Alert. Cranial nerves 2-12 are grossly intact. No gross focal deficits to casual conversation. Psychiatric: Appropriate mood and affect. DS: Data Data Completed and Pending Labs on day of discharge: Labs from last 24 hours 08/09/21 08/09/21 05:26 05:26 WBC 6.7 RBC 4.51 L Hgb 13.5 L Hct 40.2 L MCV 89.1 MCH 29.9 MCHC 33.6 RDW 12.9 Plt Count 210 MPV 9.9 Sodium 132 L Potassium 3.5 Chloride 102 Carbon Dioxide 21 L Anion Gap 9 BUN 14 Creatinine 1.00 Estim Creat Clear Calc 48 Estimat
== END 2021-08-09 14:00 | disposition home or self-care (01) ==
LOC: ANHED 17:10 → ANH2MED 08-08 08:11
PROVIDERS: Nurse Practitioner Adult Health; Admitting Provider Family Medicine; Emergency Provider Emergency Medicine; PCP Internal Medicine; Visit Provider Internal Medicine
DX: A41.9 Sepsis, unspecified organism (principal); N39.0 Urinary tract infection, site not specified; B96.4 Proteus (mirabilis) (morganii) as the cause of diseases classified elsewhere; R31.9 Hematuria, unspecified; N40.1 Benign prostatic hyperplasia with lower urinary tract symptoms; I71.4 Abdominal aortic aneurysm, without rupture; I25.10 Atherosclerotic heart disease of native coronary artery without angina pectoris; E87.1 Hypo-osmolality and hyponatremia; E78.5 Hyperlipidemia, unspecified; Z87.891 Personal history of nicotine dependence
CPT/HCPCS: 36415; 74177; 80048; 81001; 83605; 83735; 84153; 85025; 85027; 87040; 87077; 87086; 87186; 96361; 96365; 96366; 99285; A9270; G0378; J0696; J1170; J7030; Q9967

== ENCOUNTER 2022-04-04 13:56 | Outpatient (CLI) | payer MEDICARE, SELFPAY ==
[2022-04-04 14:39] LABS: Alanine Aminotransferase 21 U/L (6-50); Albumin Level 4.3 g/dL (3.5-5.1); Alkaline Phosphatase 74 U/L (38-126); Anion Gap 9 mmol/L (8-16); Aspartate Amino Transferase 24 U/L (17-59); Bilirubin,Total 0.6 mg/dL (0.2-1.3); Blood Urea Nitrogen 13 mg/dL (9-20); Calcium 8.6 mg/dL (8.4-10.2); Carbon Dioxide 25 mmol/L (22-30); Chloride 101 mmol/L (98-107); Cholesterol 106 mg/dL (0-200); Estimated Glomerular Filt Rate 53; Glucose 169 mg/dL (65-110); HDL Direct 38 mg/dL; Potassium 3.7 mmol/L (3.4-5.0); Sodium 135 mmol/L (137-145); Triglycerides 265 mg/dL (<150)
[2022-04-04 14:50] LABS: LDL Cholesterol Direct 31 mg/dL
[2022-04-04 15:09] LABS: Prostate Specific Antigen 0.1 ng/mL (< OR = 4.0)
[2022-04-04 16:00] LABS: Appearance Urine Clear (Clear); Bilirubin Urine Negative (Negative); Blood Urine 2+ (Negative); Color Urine Yellow (Yellow); Glucose Urine UA Negative (Negative); Ketones Urine Negative (Negative); Leukocyte Esterase Ur Trace LEU/UL (Negative); Nitrate Urine Positive (Negative); Protein Urine Negative (Negative); Specific Grav Ur 1.025 (1.001-1.035); Urobilinogen Urine 0.2 mg/dL (<2.0)
[2022-04-04 16:10] LABS: Add Urine Microscopic? YES; Bacteria Urine Trace /hpf; Mucus Urine Rare /lpf
== END 2022-04-04 13:57 | disposition home or self-care (01) ==
PROVIDERS: PCP Internal Medicine; Visit Provider Nurse Practitioner
DX: Z12.5 Encounter for screening for malignant neoplasm of prostate (principal); R97.20 Elevated prostate specific antigen [PSA]; E78.5 Hyperlipidemia, unspecified; R35.0 Frequency of micturition
CPT/HCPCS: 36415; 80053; 80061; 81001; 84153; G0103

== ENCOUNTER 2022-04-17 09:29 | Outpatient (CLI) | payer MEDICARE, SELFPAY ==
--- NOTE | ~2022-04-17 | CT_ITS ---
EXAMINATION: CTA abdomen DATE: 04/17/2022 10:15 INDICATION: Abdominal aortic aneurysm TECHNIQUE: Computed tomographic angiography (CTA) of the abdomen was performed with 100 mL Omnipaque- 300 intravenous contrast. Maximum intensity projection 3D-reconstructions of the aorta and other enid natasha were constructed by the technologist on a separate workstation. The dose-length product (DLP) wa s 679.24 mGy-cm. Automated exposure control and iterative reconstruction technique were employed. COMPARISON: 08/06/2021 FINDINGS: There is atelectasis and emphysema of the visualized lung bases. The heart size is normal. Calcified coronary artery atherosclerosis is noted. The gallbladder is surgically absent. There is a 10 mm cyst of the left hepatic lobe. The spleen and right adrenal gland are normal. There is a stable 4 cm mass of the left adrenal gland containing macroscopic fat, consistent with a myelolipoma. Punct ate calcifications in the otherwise normal-appearing pancreas are consistent with chronic pancreatiti s. There is a stable 2.2 cm saccular aneurysm at the anterior aspect of the suprarenal abdominal aort a which appears to be immediately cranial to the origin of the superior mesenteric artery. No dissect ion is identified. Cysts of the kidneys measure up to 2.2 cm on the left. There are no pathologically enlarged abdominal lymph nodes. There is no free intraperitoneal gas or evidence of bowel obstructio n. IMPRESSION: 1. Stable saccular aneurysm of the suprarenal abdominal aorta Reviewed, dictated and finalized at location B.
--- NOTE | ~2022-04-17 | US_ITS ---
EXAMINATION: US carotid duplex BI DATE: 04/17/2022 10:26 INDICATION: Carotid bruit TECHNIQUE: Grayscale, color Doppler, and pulsed Doppler images of the cervical carotid arteries were obtained. The degree of vessel stenosis is placed in one of the following categories: normal, <50%, 5 0-69%, >=70% but less than near-occlusion, near-occlusion, or total occlusion. Note that percent sten osis relative to normal distal artery lumen diameter is indirectly measured from velocity measurement s as described by Mervin, et al. Radiology 2003; 229:340-346. Notes: Normal: Peak systolic velocity <125 centimeters/sec and no plaque <50%. Peak systolic velocity <125 ( EDV <40; ICA/CCA PSV ratio <2.0; used these factors only a tandem lesions or low cardiac output or co ntralateral disease) 50-69 %: PSV 125-230 (EDV 40-100; ratio 2-4) >= 70% but less than near occlusion: PSV greater than 230 (EDV > 100; ratio> 4.0) Near Occlusion: PSV that is variable; markedly narrowed lumen Occlusion: Absent flow on color/spectral Doppler and no lumen on enamorado scale. COMPARISON: Ultrasound dated 05/02/2020. FINDINGS: RIGHT: The right common carotid artery (CCA) peak systolic velocity (PSV) is 77 cm/s. The right internal car otid artery (ICA) PSV is 154 cm/s. The right ICA end-diastolic velocity (EDV) is 34 cm/s. The right I CA/CCA PSV ratio is 2.0. The external carotid artery (ECA) PSV is 118 cm/s. There is antegrade flow i n the right vertebral artery. LEFT: The left CCA PSV is 80 cm/s. The left ICA PSV is 221 cm/s. The left ICA EDV is 42 cm/s. The left ICA/ CCA PSV ratio is 2.8. The ECA PSV is 84 cm/s. There is antegrade flow in the left vertebral artery. IMPRESSION: 1. 50-69% stenosis in the right internal carotid artery by sonographic criteria. 2. 50-69% stenosis in the left internal carotid artery by sonographic criteria. Reviewed, dictated and finalized at location A. IMPRESSION: 1. 50-69% stenosis in the right internal carotid artery by sonographic criteria . 2. 50-69% stenosis in the left internal carotid artery by sonographic criteria.
== END 2022-04-17 09:30 | disposition home or self-care (01) ==
PROVIDERS: PCP Internal Medicine; Visit Provider Nurse Practitioner
DX: I71.4 Abdominal aortic aneurysm, without rupture (principal); I65.23 Occlusion and stenosis of bilateral carotid arteries; R09.89 Other specified symptoms and signs involving the circulatory and respiratory systems; K76.89 Other specified diseases of liver
CPT/HCPCS: 74175; 93880; Q9967

== ENCOUNTER 2022-10-05 09:27 | Outpatient (CLI) | payer MEDICARE, SELFPAY ==
[2022-10-05 10:12] LABS: Alanine Aminotransferase 26 U/L (6-50); Albumin Level 4.4 g/dL (3.5-5.1); Alkaline Phosphatase 76 U/L (38-126); Anion Gap 6 mmol/L (8-16); Aspartate Amino Transferase 25 U/L (17-59); Bilirubin,Total 0.7 mg/dL (0.2-1.3); Blood Urea Nitrogen 14 mg/dL (9-20); Calcium 8.7 mg/dL (8.4-10.2); Carbon Dioxide 29 mmol/L (22-30); Chloride 102 mmol/L (98-107); Cholesterol 101 mg/dL (0-200); Estimated Glomerular Filt Rate 58; Glucose 144 mg/dL (65-110); HDL Direct 40 mg/dL; Sodium 137 mmol/L (137-145); Triglycerides 243 mg/dL (<150)
[2022-10-05 10:23] LABS: LDL Cholesterol Direct 34 mg/dL
[2022-10-05 10:42] LABS: Prostate Specific Antigen 0.1 ng/mL (< OR = 4.0)
== END 2022-10-05 09:28 | disposition home or self-care (01) ==
LOC: ANHLAB 09:28
PROVIDERS: PCP Internal Medicine; Visit Provider Nurse Practitioner
DX: R97.20 Elevated prostate specific antigen [PSA] (principal); E78.5 Hyperlipidemia, unspecified; Z12.5 Encounter for screening for malignant neoplasm of prostate
CPT/HCPCS: 36415; 80053; 80061; 84153; G0103

== ENCOUNTER 2023-03-09 08:57 | Outpatient (CLI) | payer MEDICARE, SELFPAY ==
[2023-03-09 09:27] LABS: Alanine Aminotransferase 32 U/L (6-50); Albumin Level 4.2 g/dL (3.5-5.1); Alkaline Phosphatase 72 U/L (38-126); Anion Gap 7 mmol/L (8-16); Aspartate Amino Transferase 36 U/L (17-59); Bilirubin,Total 0.9 mg/dL (0.2-1.3); Blood Urea Nitrogen 14 mg/dL (9-20); Calcium 8.3 mg/dL (8.4-10.2); Carbon Dioxide 28 mmol/L (22-30); Chloride 99 mmol/L (98-107); Cholesterol 103 mg/dL (0-200); Estimated Glomerular Filt Rate > 60; Glucose 139 mg/dL (65-110); HDL Direct 35 mg/dL; Potassium 4.1 mmol/L (3.4-5.0); Sodium 134 mmol/L (137-145); Triglycerides 362 mg/dL (<150)
[2023-03-09 09:43] LABS: LDL Cholesterol Direct 42 mg/dL
== END 2023-03-09 08:58 | disposition home or self-care (01) ==
PROVIDERS: PCP Family Medicine; Visit Provider Nurse Practitioner
DX: E78.5 Hyperlipidemia, unspecified (principal)
CPT/HCPCS: 36415; 80053; 80061

== ENCOUNTER 2025-03-31 11:15 | Outpatient (CLI) | payer MEDICARE, SELFPAY ==
--- OUTSIDE RECORDS SUMMARY | 2025-03-31 10:38 | XMS_ITS | Encounter Summary ---
Author Organization [facility] Healthcare Address [address] [place] [address] Care Team Providers Care Spa Technician Name Role Phone Andres Rodríguez DO Primary Care Provider [phone] Encounter Details Date Type Department Care Team (Late st Contact Info) Description 01/30/2018 [place] Only [facility] [place] [address] [place] [id number] Scanning, Provider Social History Tobacco Use Types Packs/Day Years Used Date Smoking Tobacco: Former Smokeless Tobacco: Never Alcohol Use Standard Drinks/Week Comments No 0 (1 standard drink = 0.6 oz pur e alcohol) Sex and Gender Information Value Date Recorded Sex Assigned at Not on file 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
--- OUTSIDE RECORDS SUMMARY | 2025-03-31 10:38 | XMS_ITS | Clinical Summary ---
Author Organization [facility] [place] [address] Address [address] [place] [address] Care Team Providers Care Test Eng Name Role Phone Andres Rodríguez DO Primary Care Provider [phone] Allergies No known active allergies Medications aspirin 81 mg tabletIndication s:Abnormal EKG Take 1 tablet (81 mg total) by mouth daily. 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 Continue aspirin, Brilinta, Lipitor. Other chest pain 01/07/2018 Assessment & Plan (01/27/2018 10:49 AM CDT): Stress test is abnormal. Patient is symptomatic. EKG at baseline is abnormal as well. Discussed benefits and risks for cardiac catheterization and he agrees to proceed. Will attempt right radial approach. Continue aspirin. Assessment & Plan (01/07/2018 2:34 PM CDT): Abnormal EKG and chest pain and therefore we need to rule out underlying CAD. Abnormal EKG 01/06/2018 Assessment & Plan (01/07/2018 2:34 PM CDT): EKG is severely abnormal and suggestive of ischemia. 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 After discussing our options including stress test and cardiac catheterization he agrees to undergo Lexiscan nuclear stress test at this time. Patient will start taking aspirin 81 mg daily. Resolved Problems Problem Noted Date Diagnosed Date Resolved Date Abnormal stress test 01/27/2018 018 Surgical History Surgery Date Site/Laterality Comments CHOLECYSTECTOMY CORONARY ANGIOPLASTY CARDIAC CATHETERIZATION Medical History Medical History Date Comments Overweight Hyperlipidemia Gall stones Coronary artery disease Family History Medical History Relation Name Comments Heart disease Father Relation Name Status Comments Father (Age 62) Mother (Age 88) Social History Tobacco Use Types Packs/Day Years Used Date Smoking Tobacco: Former Smokeless Tobacco: Never Alcohol Use Standard Drinks/Week Comments No 0 (1 standard drink = 0.6 oz pur e alcohol) Personal Safety Answer Date Recorded Getting School Help Needed Not on file 12/05 Sex and Gender Information Value Date Recorded Sex Assigned at Not on file Legal Sex Male 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 Gender Identity Not on file Sexual Orientation Not on file Obstetrics History Last Filed Vital Signs Vital Sign Reading Time Taken Comments Blood Pressure 104/52 08/03/2019 11:29 AM SEXUAL ASSAULT COUNSELLOR Pulse 90 08/03/2019 11:29 AM SEXUAL ASSAULT COUNSELLOR Temperature - - Respiratory Rate - - Oxygen Saturation 97% 08/03/2019 11:29 AM SEXUAL ASSAULT COUNSELLOR Inhaled Oxygen Concentration - - Weight 78 kg (172 lb) 08/03/2019 11:29 AM SEXUAL ASSAULT COUNSELLOR Height 170.2 cm (5' 7) 08/03/2019 11:29 AM SEXUAL ASSAULT COUNSELLOR Body Mass Index 26.94 08/03/2019 11:29 AM SEXUAL ASSAULT COUNSELLOR Plan of Treatment Not on file Insurance [facility] MDCR HMO REF [facility] MEDICARE Address: [facility] [address] [place] [address] Care Teams Test Eng Relationship Specialty Start Date End Date Andres Rodríguez DO PCP - General Internal Medicine 12/26/17
--- OUTSIDE RECORDS SUMMARY | 2025-03-31 10:38 | XMS_ITS | Referral Summary ---
Author Organization [facility] [place] [address] Address [address] [place] [address] Care Team Providers Care Material Hauler Name Role Phone Andres Rodríguez DO Primary Care Provider [phone] Allergies No known active allergies Medications aspirin 81 mg tabletIndication s:Abnormal EKG Take 1 tablet (81 mg total) by mouth daily. 30 tablet 11 01/07/2018 Active atorvastatin (LIPITOR) 40 mg tablet TAKE 1 TABLET BY MOUTH EVERY DAY 90 tablet 09/05/2020 Active Active Problems Problem Noted Date Diagnosed Date Hyperlipidemia 08/03/2019 Dietary counseling 08/03/2019 Exercise counseling 08/03/2019 Coronary artery disease invo lving ute coronary artery of ute heart without angina pectoris 03/03/2018 Assessment & [...] Resolved Date Abnormal stress test 01/27/2018 018 Social History Tobacco Use Types Packs/Day Years Used Date Smoking Tobacco: Former Smokeless Tobacco: Never Alcohol Use Standard Drinks/Week Comments No 0 (1 standard drink = 0.6 oz pur e alcohol) Personal Safety Answer Date Recorded Getting School Help Needed Not on file 12/05 Sex and Gender Information Value Date Recorded Sex Assigned at Not on file 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 Gender Identity Not on file Sexual Orientation Not on file Last Filed Vital Signs Vital Sign Reading Time Taken Comments Blood Pressure 104/52 08/03/2019 11:29 AM LITHOGRAPHIC PLATE MAKER APPRENTICE Pulse 90 08/03/2019 11:29 AM LITHOGRAPHIC PLATE MAKER APPRENTICE Temperature - - Respiratory Rate - - Oxygen Saturation 97% 08/03/2019 11:29 AM LITHOGRAPHIC PLATE MAKER APPRENTICE Inhaled Oxygen Concentration - - Weight 78 kg (172 lb) 08/03/2019 11:29 AM LITHOGRAPHIC PLATE MAKER APPRENTICE Height 170.2 cm (5' 7) 08/03/2019 11:29 AM LITHOGRAPHIC PLATE MAKER APPRENTICE Body Mass Index 26.94 08/03/2019 11:29 AM LITHOGRAPHIC PLATE MAKER APPRENTICE Plan of Treatment Not on file Insurance [facility] MDCR HMO REF Care Teams Material Hauler Relationship Specialty Start Date End Date Andres Rodríguez DO PCP - General Internal Medicine 12/26/17
--- OUTSIDE RECORDS SUMMARY | 2025-03-31 11:17 | XMS_ITS | Clinical Summary ---
Author Organization [facility] [place] [address] Address [address] [place] [address] Care Team Providers Care Back Tender Insulation Board Name Role Phone Andres Rodríguez DO Primary Care Provider Allergies No known active allergies Medications aspirin 81 mg tabletIndication s:Abnormal EKG Take 1 tablet (81 mg total) by mouth daily. 30 tablet 11 01/07/2018 Active atorvastatin (LIPITOR) 40 mg tablet TAKE 1 TABLET BY MOUTH EVERY DAY 90 tablet 09/05/2020 Active Active Problems Problem Noted Date Diagnosed Date Hyperlipidemia 08/03/2019 Dietary counseling 08/03/2019 Exercise counseling 08/03/2019 Coronary artery disease invo lving yuhaaviatam coronary artery of yuhaaviatam heart without angina pectoris 03/03/2018 Assessment & [...] on file Legal Sex Male 2:01 PM PASTRYCOOK Gender Identity Not on file Sexual Orientation Not on file Obstetrics History Last Filed Vital Signs Vital Sign Reading Time Taken Comments Blood Pressure 104/52 08/03/2019 11:29 AM PASTRYCOOK Pulse 90 08/03/2019 11:29 AM PASTRYCOOK Temperature - - Respiratory Rate - - Oxygen Saturation 97% 08/03/2019 11:29 AM PASTRYCOOK Inhaled Oxygen Concentration - - Weight 78 kg (172 lb) 08/03/2019 11:29 AM PASTRYCOOK Height 170.2 cm (5' 7) 08/03/2019 11:29 AM PASTRYCOOK Body Mass Index 26.94 08/03/2019 11:29 AM PASTRYCOOK Plan of Treatment Not on file Insurance [facility] MDCR HMO REF Care Teams Back Tender Insulation Board Relationship Specialty Start Date End Date Andres Rodríguez DO PCP - General Internal Medicine 12/26/17
--- OUTSIDE RECORDS SUMMARY | 2025-03-31 11:17 | XMS_ITS | Encounter Summary ---
Author Organization [facility] Healthcare Address [address] [place] [address] Care Team Providers Care Grain Operator Name Role Phone Andres Rodríguez DO Primary Care Provider [phone] Encounter Details Date Type Department Care Team (Late st Contact Info) Description 01/30/2018 [place] Only [facility] [place] Information Management [address] [place] [id number] Scanning, Provider Social History Tobacco Use Types Packs/Day Years Used Date Smoking Tobacco: Former Smokeless Tobacco: Never Alcohol Use Standard Drinks/Week Comments No 0 (1 standard drink = 0.6 oz pur e alcohol) Sex and Gender Information Value Date Recorded Sex Assigned at Not on file 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
--- OUTSIDE RECORDS SUMMARY | 2025-03-31 11:17 | XMS_ITS | Referral Summary ---
Author Organization [facility] [place] [address] Address [address] [place] [address] Care Team Providers Care Enrollment Eligibility Representative Name Role Phone Andres Rodríguez DO Primary Care Provider [phone] Allergies No known active allergies Medications aspirin 81 mg tabletIndication s:Abnormal EKG Take 1 tablet (81 mg total) by mouth daily. 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 Gender Identity Not on file Sexual Orientation Not on file Last Filed Vital Signs Vital Sign Reading Time Taken Comments Blood Pressure 104/52 08/03/2019 11:29 AM TREASURY CONSULTANT Pulse 90 08/03/2019 11:29 AM TREASURY CONSULTANT Temperature - - Respiratory Rate - - Oxygen Saturation 97% 08/03/2019 11:29 AM TREASURY CONSULTANT Inhaled Oxygen Concentration - - Weight 78 kg (172 lb) 08/03/2019 11:29 AM TREASURY CONSULTANT Height 170.2 cm (5' 7) 08/03/2019 11:29 AM TREASURY CONSULTANT Body Mass Index 26.94 08/03/2019 11:29 AM TREASURY CONSULTANT Plan of Treatment Not on file Insurance [facility] MDCR HMO REF Care Teams Enrollment Eligibility Representative Relationship Specialty Start Date End Date Andres Rodríguez DO PCP - General Internal Medicine 12/26/17
[2025-03-31 11:55] LABS: Hematocrit 42.5 % (42.0-52.0); Hemoglobin 14.1 g/dL (14.0-18.0); Mean Corpuscular HGB Conc 33.2 g/dl (32-36); Mean Corpuscular Hemoglobin 30.3 pg (26-34); Mean Corpuscular Volume 91.2 fl (80-100); Platelet Count Result 234 k/mm3 (150-375); Red Blood Count 4.66 M/mm3 (4.6-6.20); White Blood Count 7.6 K/mm3 (4.5-10.0)
[2025-03-31 11:58] LABS: Add Urine Microscopic? YES; Appearance Urine Clear (Clear); Glucose Urine UA Negative (Negative); Leukocyte Esterase Ur 3+ LEU/UL (Negative); Nitrate Urine Positive (Negative); Non Pathogenic Casts 0-2; Specific Grav Ur 1.012 (1.001-1.035)
[2025-03-31 12:39] LABS: Alanine Aminotransferase 22 U/L (6-50); Albumin Level 3.9 g/dL (3.5-5.1); Alkaline Phosphatase 65 U/L (38-126); Anion Gap 6 mmol/L (4-12); Aspartate Amino Transferase 31 U/L (17-59); Bilirubin,Total 0.6 mg/dL (0.2-1.3); Blood Urea Nitrogen 13 mg/dL (9-20); Calcium 8.7 mg/dL (8.4-10.2); Carbon Dioxide 25 mmol/L (22-30); Chloride 98 mmol/L (98-107); Cholesterol 92 mg/dL (0-200); Estimated Glomerular Filt Rate > 60; Glucose 99 mg/dL (65-110); HDL Direct 48 mg/dL; Potassium 4.0 mmol/L (3.4-5.0); Sodium 129 mmol/L (137-145); Total Protein 6.4 g/dL (6.3-8.2); Triglycerides 85 mg/dL (<150)
== END 2025-03-31 11:16 | disposition home or self-care (01) ==
PROVIDERS: PCP Nurse Practitioner; Visit Provider Nurse Practitioner
DX: E78.5 Hyperlipidemia, unspecified (principal); R35.0 Frequency of micturition
CPT/HCPCS: 36415; 80053; 80061; 81001; 85027; 87086